=== PATIENT | female | born 1970 | race Caucasian/White ===

== ENCOUNTER 2016-12-11 07:36 | Outpatient (CLI) | payer MEDICARE | END 2016-12-11 07:37 | disposition home or self-care (01) | DX: E10.8 Type 1 diabetes mellitus with unspecified complications (principal) ==

== ENCOUNTER 2017-02-09 14:26 | Outpatient (CLI) | payer MEDICARE | END 2017-02-09 14:27 | disposition home or self-care (01) | DX: Z12.31 Encounter for screening mammogram for malignant neoplasm of breast (principal) ==

== ENCOUNTER 2017-02-28 08:30 | Outpatient (CLI) | payer MEDICARE | END 2017-02-28 08:31 | disposition home or self-care (01) | DX: E10.9 Type 1 diabetes mellitus without complications (principal) ==

== ENCOUNTER 2017-05-31 07:58 | Outpatient (CLI) | payer MEDICARE ==
[2017-05-31 13:39] LABS: HEMOGLOBIN A1C 0.83 g/dL
[2017-05-31 13:45] LABS: ALBUMIN/GLOBULIN RATIO 1.3 (1.0-2.2); BILIRUBIN,TOTAL 0.8 mg/dL (0.2-1.0); BUN - BLOOD UREA NITROGEN 16 mg/dL (6-20); CALCIUM 8.6 mg/dL (8.5-10.3); CARBON DIOXIDE - CO2 24 mmol/L (21-32); CHLORIDE 106 mmol/L (101-111); CREATININE 0.9 mg/dL (0.4-1.0); GFR - MDRD 67 (>89); GLUCOSE 86 mg/dL (70-100); POTASSIUM 3.9 mmol/L (3.5-5.0); SODIUM 137 mmol/L (135-145); TOTAL PROTEIN 6.8 g/dL (6.7-8.2)
[2017-05-31 14:12] LABS: CHOLESTEROL 166 mg/dL; HDL CHOLESTEROL 56 mg/dL; LDL/HDL RATIO 1.3 (<4.4); TRIGLYCERIDES 200 mg/dL; VLDL CHOLESTEROL 40 mg/dL
== END 2017-05-31 07:59 | disposition home or self-care (01) ==
LOC: LAB.WCP 07:58
PROVIDERS: ATTEND Physician Assistant Medical
DX: E10.9 Type 1 diabetes mellitus without complications (principal); E03.9 Hypothyroidism, unspecified
CPT/HCPCS: 36415; 80053; 80061; 83036; 84443

== ENCOUNTER 2017-08-30 08:00 | Outpatient (CLI) | payer MEDICARE ==
[2017-08-30 13:37] LABS: CALCIUM 9.1 mg/dL (8.5-10.3); CREATININE 0.9 mg/dL (0.4-1.0); POTASSIUM 4.4 mmol/L (3.5-5.0)
[2017-08-30 13:40] LABS: HEMOGLOBIN A1C 0.89 g/dL
== END 2017-08-30 08:01 | disposition home or self-care (01) ==
LOC: LAB.WCP 08:00
PROVIDERS: ATTEND Physician Assistant Medical
DX: E10.9 Type 1 diabetes mellitus without complications (principal)
CPT/HCPCS: 36415; 80048; 82043; 83036

== ENCOUNTER 2017-11-21 10:54 | Outpatient (CLI) | payer MEDICARE ==
[2017-11-21 18:50] LABS: BASOPHILS # (AUTO) 0.1 10^3/uL (0.0-0.1); BASOPHILS % (AUTO) 0.8 %; EOSINOPHILS # (AUTO) 0.1 10^3/uL (0.0-0.7); EOSINOPHILS % (AUTO) 1.4 %; LYMPHOCYTES # (AUTO) 2.2 10^3/uL (1.5-3.5); LYMPHOCYTES % (AUTO) 30.2 %; MEAN CORPUSCULAR HEMOGLOBIN 30.5 pg (27.0-31.0); MEAN CORPUSCULAR HGB CONC 33.4 g/dL (32.0-36.0); MEAN CORPUSCULAR VOLUME 91.1 fL (81.0-99.0); MEAN PLATELET VOLUME 9.6 fL (7.9-10.8); MONOCYTES # (AUTO) 0.5 10^3/uL (0.0-1.0); MONOCYTES % (AUTO) 6.7 %; NEUTROPHILS # (AUTO) 4.3 10^3/uL (1.5-6.6); NEUTROPHILS % (AUTO) 60.9 %; PLT - PLATELET COUNT 221 10^3/uL (130-450); RED BLOOD COUNT 4.61 10^6/uL (4.20-5.40); RED CELL DISTRIBUTION WIDTH 13.3 % (12.0-15.0); WHITE BLOOD COUNT 7.1 x10^3/uL (4.8-10.8)
[2017-11-21 19:12] LABS: ALBUMIN 3.9 g/dL (3.2-5.5); ALBUMIN/GLOBULIN RATIO 1.1 (1.0-2.2); BILIRUBIN,TOTAL 0.4 mg/dL (0.2-1.0); CALCIUM 9.2 mg/dL (8.5-10.3); CREATININE 0.9 mg/dL (0.4-1.0); TOTAL PROTEIN 7.4 g/dL (6.7-8.2)
== END 2017-11-21 10:55 | disposition home or self-care (01) ==
LOC: LAB.WCP 10:54
PROVIDERS: ATTEND Family Medicine
DX: L03.90 Cellulitis, unspecified (principal)
CPT/HCPCS: 36415; 80053; 85025

== ENCOUNTER 2017-11-23 11:02 | Emergency (ER) | payer MEDICARE ==
--- NOTE | 2017-11-23 12:01 | ED Physician Documentation ---
PD HPI SKIN - Stated complaint Stated Complaint: TENDERNESS IN LEG - Chief complaint Chief Complaint: Ext Problem - History obtained from History obtained from: Patient - History of Present Illness Timing - onset: How many weeks ago (2) Timing - duration: Weeks (2) Timing - details: Gradual onset, Still present (worsening - initially redness and tenderness dorsum of foot on right, not of toes. Continued with this despite abx from PCP. No noted injury. No skin sores. Rx as cellulitis with Keflex. Not improved and had increased redness and tenderness to foot and then lower leg. Given Rocephin IM in office 2 days in a row. Now with line of redness and tenderness up calf and medial thigh. Seen in office today and referred to ER for IV abx.) Location: RLE (fot and then to lower leg, and thigh) Quality / character: Painful, Discolored (red), Swelling (firm swelling in linear fashion) Improved by: No: Antibiotics Associated symptoms: No: Fever, Myalgias, N/V/D Contributing factors: No: Recent illness Similar symptoms before: Has not had sx before Recently seen: Clinic Review of Systems Constitutional: denies: Fever, Chills, Myalgias Throat: denies: Sore throat Cardiac: denies: Chest pain / pressure Respiratory: denies: Dyspnea, Cough GI: denies: Nausea, Vomiting Skin: reports: Rash, Lesions Neurologic: denies: Focal weakness, Numbness PD PAST MEDICAL HISTORY - Past Medical History Endocrine/Autoimmune: Type 1 diabetes, HyPOthyroidism HEENT: Macular degeneration Psych: Depression - Past Surgical History Past Surgical History: Yes 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 - Present Medications Home Medications: Ambulatory Orders Medication Instructions Recorded Confirmed Citalopram [CeleXA] 40 mg PO DAILY 06/15/14 02/28/16 Levothyroxine Sodium [Levoxyl] 88 mcg PO DAILY 06/15/14 02/28/16 Norethindrone-E.estradiol-Iron 1 tab PO DAILY 06/15/14 02/28/16 [Loestrin Fe 1.5-30 Tablet] Glucagon,Human Recombinant 1 mg IJ ONCE PRN MDD 1 02/28/16 02/28/16 [Glucagen] L.acidoph/L.rhamn/B.bif/B.long 12.9 mg PO DAILY 02/28/16 02/28/16 [Probiotic Acidophilus Biobeads] Aspirin 11/23/17 HYDROcod/ACETAM 5/325 [[place]asgow 5/325] 1 tab PO Q6H PRN #15 tablet 11/23/17 Insulin Aspart [NovoLOG] 11/23/17 Naproxen 375 mg PO BID #14 tablet 11/23/17 Rivaroxaban [Xarelto] 15 mg PO BID #42 tablet 11/23/17 - Allergies Allergies/Adverse Reactions: Allergies Allergy/AdvReac Type Severity Reaction Status Date / Time Sulfa (Sulfonamide AdvReac Intermediate Hives Verified 11/23/17 11:14 Antibiotics) amoxicillin [Amoxicillin] AdvReac Unknown Unknown Verified 11/23/17 11:14 Penicillins AdvReac Unknown Unknown Verified 11/23/17 11:14 - Social History Does the pt smoke?: No Smoking Status: Never smoker Does the pt drink ETOH?: Yes Does the pt have substance abuse?: No - Immunizations Immunizations are current?: Yes - POLST Patient has POLST: No PD ED PE NORMAL - Vitals Vital signs reviewed: Yes - General General: Alert and oriented X 3, No acute distress, Well developed/nourished - Cardiac Cardiac: RRR, No murmur - Respiratory Respiratory: Clear bilaterally - Abdomen Abdomen: Soft, Non tender - Derm Derm: Normal color, Warm and dry - Extremities Extremities: No edema, Other (dorsum of foot and medial ankle, then to posteromedial calf and up to popliteal area with linear redness, firmness in cord, and marked tenderness. No skin sores. Toes are normal. Good color and cap refill in toes. ) - Neuro Neuro: Alert and oriented X 3, No motor deficit, No sensory deficit Results - Vitals Vitals: Vital Signs - 24 hr 11/23/17 11/23/17 11:09 15:38 Temperature 36.8 C 36.6 C Heart Rate 78 80 Respiratory 15 17 Rate Blood Pressure 117/89 H 154/82 H O2 Saturation 96 100 Oxygen O2 Source Room air - Labs Labs: Laboratory Tests 11/23/17 11/23/17 11/23/17 11:25 11:25 11:25 WBC 7.4 RBC 4.69 Hgb 14.2 Hct 41.8 MCV 89.2 MCH 30.2 MCHC 33.8 RDW 13.2 Plt Count 213 MPV 9.3 Neut # 5.0 Lymph # 1.8 Mcintosh # 0.5 Eos # 0.1 Baso # 0.0 Absolute Nucleated RBC 0.00 Nucleated RBC % 0.1 ESR 2 Sodium 134 L Potassium 3.9 Chloride 98 L Carbon Dioxide 24 Anion Gap 12.0 BUN 19 Creatinine 0.9 Estimated GFR (MDRD) 67 L Glucose 215 H Calcium 9.4 Total Bilirubin 0.5 AST 19 ALT 13 Alkaline Phosphatase 37 L C-Reactive Protein 1.0 Total Protein 7.7 Albumin 4.2 Globulin 3.5 Albumin/Globulin Ratio 1.2 Lipase 43 - Rads (name of study) venous U/S Radiology: Prelim report reviewed, Discussed with rads (superficial phlebitis and then peroneal DVT. ) PD MEDICAL DECISION MAKING - ED course Complexity details: considered differential (exam more c/w phlebitis rather than cellulitis. Got U/S which showed DVT as well. Discussed options with patient and shared decision with Serjio. ), d/w patient, d/w PMD (Dr. Bunch , software applications architect. ) Departure - Departure Disposition: 01 Home, Self Care Clinical Impression: Deep vein thrombosis Qualifiers: DVT location: lower extremity Affected thrombotic vein of extremity: other lower extremity vein Chronicity: acute Laterality: right Qualified Code(s): I82.491 - Acute embolism and thrombosis of other specified deep vein of right lower extremity Superficial thrombophlebitis Qualifiers: Superficial thrombophlebitis-Involved body area: lower extremity Laterality: right Qualified Code(s): I80.01 - Phlebitis and thrombophlebitis of superficial vessels of right lower extremity Condition: Stable Record reviewed to determine appropriate education?: Yes Instructions: ED DVT, ED Phlebitis Superficial Follow-Up: Shikha Cedeno PA-C [Provider Admit Priv/Credential] - Prescriptions: HYDROcod/ACETAM 5/325 [Glasgow 5/325] 1 tab PO Q6H PRN #15 tablet PRN Reason: Pain Naproxen 375 mg PO BID #14 tablet Rivaroxaban [Xarelto] 15 mg PO BID #42 tablet Comments: Drink lots of fluids. Activity as tolerated. Start the Xarelto blood thinner twice daily for the first 3 weeks. That will need to switch to once daily after that. Follow-up with your primary care next week, call for an appointment. For the short-term you could add an anti-inflammatory to help with the phlebitis naproxen twice daily for 5-7 days. Warm towels to the area to help soften the clot. Add Tylenol or hydrocodone if needed for pain. You can discontinue prior antibiotics. Discharge Date/Time: 11/23/17 15:40
[2017-11-23] MEDS ORDERED: VANCOMYCIN INJ 1 GM in SODIUM CHLORIDE 0.9% 250 ML IV STA (12:22)
[2017-11-23] MEDS ORDERED: KETOROLAC 60 MG/2 ML VIAL IVP STA (12:22)
[2017-11-23] MEDS ORDERED: ceFAZolin 1 GM in SODIUM CHLORIDE 0.9% MINIBAG 100 ML IV ONE (12:22)
[2017-11-23] MEDS ORDERED: SODIUM CHLORIDE 0.9% 1,000 ML IV ONE (12:22)
[2017-11-23] MEDS ORDERED: MORPHINE 2 MG/ML CARPUJECT IVP STA (12:23)
[2017-11-23 12:37] LABS: BASOPHILS % (AUTO) 0.5 %; EOSINOPHILS # (AUTO) 0.1 10^3/uL (0.0-0.7); EOSINOPHILS % (AUTO) 1.2 %; HGB - HEMOGLOBIN 14.2 g/dL (12.0-16.0); LYMPHOCYTES # (AUTO) 1.8 10^3/uL (1.5-3.5); LYMPHOCYTES % (AUTO) 24.4 %; MEAN CORPUSCULAR HEMOGLOBIN 30.2 pg (27.0-31.0); MEAN CORPUSCULAR HGB CONC 33.8 g/dL (32.0-36.0); MEAN CORPUSCULAR VOLUME 89.2 fL (81.0-99.0); MEAN PLATELET VOLUME 9.3 fL (7.9-10.8); MONOCYTES # (AUTO) 0.5 10^3/uL (0.0-1.0); MONOCYTES % (AUTO) 6.6 %; NEUTROPHILS % (AUTO) 67.3 %; PLT - PLATELET COUNT 213 10^3/uL (130-450); RED BLOOD COUNT 4.69 10^6/uL (4.20-5.40); RED CELL DISTRIBUTION WIDTH 13.2 % (12.0-15.0); WHITE BLOOD COUNT 7.4 x10^3/uL (4.8-10.8)
[2017-11-23 12:49] LABS: ALBUMIN 4.2 g/dL (3.2-5.5); ALBUMIN/GLOBULIN RATIO 1.2 (1.0-2.2); BILIRUBIN,TOTAL 0.5 mg/dL (0.2-1.0); CALCIUM 9.4 mg/dL (8.5-10.3); CREATININE 0.9 mg/dL (0.4-1.0); TOTAL PROTEIN 7.7 g/dL (6.7-8.2)
[2017-11-23] MEDS ORDERED: RIVAROXABAN 15 MG TABLET PO STA (14:34)
[2017-11-23 15:39] VITALS: BP 154/82
--- NOTE | 2017-11-23 16:15 | Ultrasound Report ---
DATE OF SERVICE: 11/23/2017 RIGHT LEG VENOUS DUPLEX: 11/23/2017 CLINICAL INDICATION: Calf and foot pain and redness. TECHNIQUE: Real-time sonographic vascular imaging was performed by the account supervisor through the right lower extremity utilizing both color flow and Doppler spectral analysis. Multiple packaging sales representative static images were saved for review. FINDINGS: The right common femoral, greater saphenous, profunda femoris, superficial femoral, and popliteal veins are widely patent. There is thrombosis of one of the paired posterior tibial veins and one of the paired peroneal veins in the calf. Additionally, there is superficial thrombophlebitis of the lesser saphenous vein in the calf. IMPRESSION: CALF VEIN DVT AND SUPERFICIAL THROMBOPHLEBITIS OF THE LESSER SAPHENOUS VEIN. CRITICAL RESULT: Results called to Dr. Garcia in the emergency department on 11/23/2017 at 1350 hours. TD: 11/23/2017 16:15
== END 2017-11-23 15:40 | disposition home or self-care (01) ==
LOC: ED 11:02
DX: I82.491 Acute embolism and thrombosis of other specified deep vein of right lower extremity (principal); E11.9 Type 2 diabetes mellitus without complications; E03.9 Hypothyroidism, unspecified
CPT/HCPCS: 36415; 80053; 83690; 85025; 85651; 86140; 93971; 96365; 96366; 96368; 96375; 99283; 99284; A9270; J3370

== ENCOUNTER 2018-01-07 10:18 | Outpatient (CLI) | payer MEDICARE ==
[2018-01-07 13:07] LABS: CALCIUM 9.3 mg/dL (8.5-10.3); CREATININE 0.8 mg/dL (0.4-1.0)
[2018-01-07 13:21] LABS: HB2 TOTAL 13.8 g/dL; HEMOGLOBIN A1C 0.77 g/dL; HEMOGLOBIN A1C % 7.3 % (4.6-6.2)
== END 2018-01-07 10:19 | disposition home or self-care (01) ==
LOC: LAB.WCP 10:18
PROVIDERS: ATTEND Physician Assistant Medical
DX: E10.9 Type 1 diabetes mellitus without complications (principal)
CPT/HCPCS: 36415; 80048; 83036

== ENCOUNTER 2018-02-27 12:15 | Outpatient (CLI) | payer MEDICARE ==
--- NOTE | 2018-02-27 16:41 | Mammography Report ---
SCREENING MAMMOGRAM: 02/27/2018 CLINICAL INDICATION: A 47-year-old nulliparous patient with history of benign right breast biopsy, for screening. COMPARISON: 01/2017, 01/2016, 12/2014, 01/2013, 01/2012, 01/2011, 01/2010 FINDINGS: The breasts again demonstrate heterogeneously dense fibroglandular parenchyma bilaterally. Coarse and punctate, typically benign calcifications are present. Post-biopsy changes in the right breast are stable. No suspicious masses, clustered microcalcifications, or regions of architectural distortion are identified. IMPRESSION: BENIGN FINDINGS. RECOMMENDATION: Routine annual screening unless otherwise clinically indicated. BI-RADS CATEGORY 2 BENIGN FINDINGS. STANDARD QUALIFYING STATEMENTS: 1. This examination was reviewed with the aid of Computer-Aided Detection (CAD). 2. A negative or benign imaging report should not delay biopsy if clinically suspicious findings are present. Consider surgical consultation if warranted. More than 5% of cancers are not identified by imaging. 3. Dense breasts may obscure an underlying neoplasm. TD: 02/27/2018 16:39
== END 2018-02-27 12:16 | disposition home or self-care (01) ==
LOC: DI.N 12:15
PROVIDERS: ATTEND Physician Assistant Medical
DX: Z12.31 Encounter for screening mammogram for malignant neoplasm of breast (principal)
CPT/HCPCS: 77067

== ENCOUNTER 2018-04-09 08:32 | Outpatient (CLI) | payer MEDICARE ==
[2018-04-09 12:24] LABS: HB2 TOTAL 14.8 g/dL; HEMOGLOBIN A1C 0.87 g/dL; HEMOGLOBIN A1C % 7.5 % (4.6-6.2)
[2018-04-09 12:34] LABS: BUN - BLOOD UREA NITROGEN 17 mg/dL (6-20); CALCIUM 8.9 mg/dL (8.5-10.3); CARBON DIOXIDE - CO2 26 mmol/L (21-32); CHLORIDE 101 mmol/L (101-111); CHOL/HDL RATIO 2.9 (<4.4); CHOLESTEROL 184 mg/dL; CREATININE 0.8 mg/dL (0.4-1.0); GFR - MDRD 77 (>89); GLUCOSE 184 mg/dL (70-100); HDL CHOLESTEROL 63 mg/dL; LDL CHOLESTEROL,CALCULATED 106 mg/dL; LDL/HDL RATIO 1.7 (<4.4); SODIUM 132 mmol/L (135-145); VLDL CHOLESTEROL 15 mg/dL
== END 2018-04-09 08:33 | disposition home or self-care (01) ==
LOC: LAB.WCP 08:32
PROVIDERS: ATTEND Physician Assistant Medical
DX: E10.9 Type 1 diabetes mellitus without complications (principal)
CPT/HCPCS: 36415; 80048; 80061; 83036; 83721

== ENCOUNTER 2018-07-10 09:30 | Outpatient (CLI) | payer MEDICARE ==
[2018-07-10 13:40] LABS: CALCIUM 8.9 mg/dL (8.5-10.3); CREATININE 0.8 mg/dL (0.4-1.0)
[2018-07-10 13:56] LABS: HB2 TOTAL 14.4 g/dL; HEMOGLOBIN A1C 0.84 g/dL; HEMOGLOBIN A1C % 7.5 % (4.6-6.2)
== END 2018-07-10 09:31 | disposition home or self-care (01) ==
LOC: LAB.WCP 09:30
PROVIDERS: ATTEND Physician Assistant Medical
DX: E10.9 Type 1 diabetes mellitus without complications (principal)
CPT/HCPCS: 36415; 80048; 83036

== ENCOUNTER 2018-09-25 08:00 | Outpatient (CLI) | payer MEDICARE ==
[2018-09-25 13:41] LABS: BASOPHILS % (AUTO) 1.1 %; EOSINOPHILS # (AUTO) 0.1 10^3/uL (0.0-0.7); EOSINOPHILS % (AUTO) 2.6 %; LYMPHOCYTES # (AUTO) 1.6 10^3/uL (1.5-3.5); LYMPHOCYTES % (AUTO) 41.4 %; MEAN CORPUSCULAR HEMOGLOBIN 30.3 pg (27.0-31.0); MEAN CORPUSCULAR HGB CONC 33.8 g/dL (32.0-36.0); MEAN CORPUSCULAR VOLUME 89.5 fL (81.0-99.0); MEAN PLATELET VOLUME 9.3 fL (7.9-10.8); MONOCYTES # (AUTO) 0.3 10^3/uL (0.0-1.0); MONOCYTES % (AUTO) 8.5 %; NEUTROPHILS # (AUTO) 1.8 10^3/uL (1.5-6.6); NEUTROPHILS % (AUTO) 46.4 %; PLT - PLATELET COUNT 217 10^3/uL (130-450); RED BLOOD COUNT 4.61 10^6/uL (4.20-5.40); RED CELL DISTRIBUTION WIDTH 13.3 % (12.0-15.0); WHITE BLOOD COUNT 3.9 x10^3/uL (4.8-10.8)
[2018-09-25 13:58] LABS: HB2 TOTAL 14.8 g/dL; HEMOGLOBIN A1C 0.82 g/dL; HEMOGLOBIN A1C % 7.2 % (4.6-6.2)
[2018-09-25 14:08] LABS: ALBUMIN 4.3 g/dL (3.2-5.5); ALBUMIN/GLOBULIN RATIO 1.3 (1.0-2.2); ALKALINE PHOSPHATASE 40 IU/L (42-121); ALT ALANINE AMINOTRANSFERASE 15 IU/L (10-60); AST ASPARTATE AMINOTRANSFERASE 21 IU/L (10-42); BILIRUBIN,TOTAL 0.8 mg/dL (0.2-1.0); BUN - BLOOD UREA NITROGEN 17 mg/dL (6-20); CARBON DIOXIDE - CO2 29 mmol/L (21-32); CHLORIDE 102 mmol/L (101-111); CHOL/HDL RATIO 3.3 (<4.4); CHOLESTEROL 202 mg/dL; CREATININE 0.8 mg/dL (0.4-1.0); GFR - MDRD 76 (>89); GLUCOSE 123 mg/dL (70-100); HDL CHOLESTEROL 62 mg/dL; LDL CHOLESTEROL,CALCULATED 122 mg/dL; SODIUM 136 mmol/L (135-145); TOTAL PROTEIN 7.5 g/dL (6.7-8.2); VLDL CHOLESTEROL 18 mg/dL
== END 2018-09-25 23:59 | disposition home or self-care (01) ==
LOC: LAB.WCP 08:00
PROVIDERS: ATTEND Physician Assistant Medical
DX: E10.9 Type 1 diabetes mellitus without complications (principal)
CPT/HCPCS: 36415; 80053; 80061; 83036; 83721; 84443; 85025

== ENCOUNTER 2018-10-21 10:05 | Outpatient (CLI) | payer MEDICARE ==
--- NOTE | 2018-10-21 12:52 | XRAY Report ---
Reason: KNEE PAIN,LEFT Procedure Date: 10/21/2018 Accession Number: [id number] / [id number] Procedure: XR - Knee 3 View LT CPT Code: FULL RESULT: EXAM: LEFT KNEE RADIOGRAPHY EXAM DATE: 10/21/2018 10:21 AM. CLINICAL HISTORY: KNEE Pain, left. COMPARISON: None. TECHNIQUE: 3 views. FINDINGS: Bones: No fractures or bone lesions. Joints: There is mild lateral patellar tilt. No effusion. No subluxations. Soft Tissues: There is prepatellar soft tissue swelling. IMPRESSION: Soft tissue swelling. No acute bone findings. RADIA
== END 2018-10-21 10:06 | disposition home or self-care (01) ==
LOC: DI 10:05
PROVIDERS: ATTEND Physician Assistant Medical
DX: M25.562 Pain in left knee (principal); R22.42 Localized swelling, mass and lump, left lower limb

== ENCOUNTER 2018-12-23 08:34 | Outpatient (CLI) | payer MEDICARE ==
[2018-12-23 13:23] LABS: BUN - BLOOD UREA NITROGEN 26 mg/dL (6-20); CHOL/HDL RATIO 2.6 (<4.4); CHOLESTEROL 203 mg/dL; CREATININE 0.8 mg/dL (0.4-1.0); GFR - MDRD 76 (>89); GLUCOSE 266 mg/dL (70-100); HDL CHOLESTEROL 77 mg/dL; LDL CHOLESTEROL,CALCULATED 108 mg/dL; LDL/HDL RATIO 1.4 (<4.4); VLDL CHOLESTEROL 18 mg/dL
[2018-12-23 13:30] LABS: CALCIUM 9.3 mg/dL (8.5-10.3); CARBON DIOXIDE - CO2 27 mmol/L (21-32); CHLORIDE 101 mmol/L (101-111); SODIUM 135 mmol/L (135-145)
[2018-12-23 14:21] LABS: HB2 TOTAL 15.6 g/dL
== END 2018-12-23 23:59 | disposition home or self-care (01) ==
LOC: LAB.WCP 08:34
PROVIDERS: ATTEND Physician Assistant Medical
DX: E10.9 Type 1 diabetes mellitus without complications (principal)
CPT/HCPCS: 36415; 80048; 80061; 83036; 83721

== ENCOUNTER 2019-03-24 09:17 | Outpatient (CLI) | payer MEDICARE ==
[2019-03-24 12:46] LABS: CALCIUM 9.1 mg/dL (8.5-10.3)
[2019-03-24 12:56] LABS: HB2 TOTAL 14.5 g/dL; HEMOGLOBIN A1C 0.9 g/dL; HEMOGLOBIN A1C % 7.8 % (4.6-6.2)
== END 2019-03-24 09:18 | disposition home or self-care (01) ==
LOC: LAB.WCP 09:17
PROVIDERS: ATTEND Physician Assistant Medical
DX: E10.9 Type 1 diabetes mellitus without complications (principal)
CPT/HCPCS: 36415; 80048; 83036

== ENCOUNTER 2019-03-26 08:34 | Outpatient (CLI) | payer MEDICARE ==
--- NOTE | 2019-03-27 08:42 | Mammography Report ---
Reason: SCREENING MAMMO Procedure Date: 03/26/2019 Accession Number: [id number] / [id number] Procedure: MGN - Screening Mammo Dig Bilat CPT Code: FULL RESULT: EXAM: Screening Mammo Dig Bilat DATE: 03/26/2019 9:07 AM CLINICAL HISTORY: Screening encounter. History of nulliparity. History of benign right breast biopsy. TECHNIQUE: (B) - Bilateral CC, laterally exaggerated CC, MLO views were obtained. COMPARISON: 02/27/2018 through 01/15/2015. PARENCHYMAL PATTERN: (D) - The breast(s) demonstrate(s) heterogeneously dense fibroglandular parenchyma. FINDINGS: Postbiopsy changes are seen in the right breast. There are coarse typically benign calcifications. There are no suspicious masses, calcifications, or areas of distortion. IMPRESSION: Benign findings. BI-RADS category 2. RECOMMENDATION: (ANNUAL) - Recommend routine annual screening mammography. BI-RADS CATEGORY: (2) - Benign Findings. STANDARD QUALIFYING STATEMENTS: 1. This examination was not reviewed with the aid of Computer-Aided Detection (CAD). 2. A negative or benign imaging report should not preclude biopsy if clinically suspicious findings are present. 3. Dense breasts may obscure an underlying neoplasm. 4. This examination was reviewed without the aid of 3D breast imaging (tomosynthesis).
== END 2019-03-26 08:35 | disposition home or self-care (01) ==
LOC: DI.N 08:34
DX: Z12.31 Encounter for screening mammogram for malignant neoplasm of breast (principal)
CPT/HCPCS: 77067

== ENCOUNTER 2019-07-02 10:14 | Outpatient (CLI) | payer MEDICARE ==
[2019-07-02 12:40] LABS: CALCIUM 8.9 mg/dL (8.5-10.3); CREATININE 0.7 mg/dL (0.4-1.0)
[2019-07-02 13:06] LABS: HB2 TOTAL 13.8 g/dL; HEMOGLOBIN A1C 0.85 g/dL; HEMOGLOBIN A1C % 7.8 % (4.6-6.2)
== END 2019-07-02 23:59 | disposition home or self-care (01) ==
LOC: LAB.WCP 10:14
PROVIDERS: ATTEND Physician Assistant Medical
DX: E10.49 Type 1 diabetes mellitus with other diabetic neurological complication (principal)
CPT/HCPCS: 36415; 80048; 83036

== ENCOUNTER 2019-09-17 06:06 | Day surgery (SDC) | payer MEDICARE ==
[2019-09-17] MEDS ORDERED: LACTATED RINGERS 1,000 ML IV ONE (06:57)
[2019-09-17 08:49] VITALS: BP 105/66
== END 2019-09-17 06:07 | disposition home or self-care (01) ==
LOC: SDS 06:06
PROVIDERS: ATTEND Surgery
PROC: 0DBM8ZZ Excision of Descending Colon, Via Natural or Artificial Opening Endoscopic (ICD-10-PCS; 2019-09-17)
PROC: 0DBH8ZZ Excision of Cecum, Via Natural or Artificial Opening Endoscopic (ICD-10-PCS; principal; 2019-09-17 07:30)
DX: Z12.11 Encounter for screening for malignant neoplasm of colon (principal); D12.0 Benign neoplasm of cecum; D12.4 Benign neoplasm of descending colon; K64.8 Other hemorrhoids; E10.9 Type 1 diabetes mellitus without complications; Z79.4 Long term (current) use of insulin; E03.9 Hypothyroidism, unspecified
CPT/HCPCS: 45380; J7120

== ENCOUNTER 2019-10-01 08:00 | Outpatient (CLI) | payer MEDICARE ==
[2019-10-01 13:03] LABS: ALBUMIN 4.2 g/dL (3.2-5.5); ALBUMIN/GLOBULIN RATIO 1.3 (1.0-2.2); ALKALINE PHOSPHATASE 43 IU/L (42-121); ALT ALANINE AMINOTRANSFERASE 16 IU/L (10-60); AST ASPARTATE AMINOTRANSFERASE 20 IU/L (10-42); BASOPHILS % (AUTO) 0.8 %; BILIRUBIN,TOTAL 0.6 mg/dL (0.2-1.0); BUN - BLOOD UREA NITROGEN 19 mg/dL (6-20); CALCIUM 9.4 mg/dL (8.5-10.3); CARBON DIOXIDE - CO2 31 mmol/L (21-32); CHLORIDE 100 mmol/L (101-111); CHOL/HDL RATIO 2.7 (<4.4); CHOLESTEROL 183 mg/dL; CREATININE 0.9 mg/dL (0.4-1.0); CREATININE,URINE 233.6 mg/dL; EOSINOPHILS # (AUTO) 0.1 10^3/uL (0.0-0.7); EOSINOPHILS % (AUTO) 2.9 %; GFR - MDRD 66 (>89); GLUCOSE 144 mg/dL (70-100); HDL CHOLESTEROL 69 mg/dL; HGB - HEMOGLOBIN 13.5 g/dL (12.0-16.0); LDL CHOLESTEROL,CALCULATED 101 mg/dL; LDL/HDL RATIO 1.5 (<4.4); LYMPHOCYTES % (AUTO) 40.8 %; MEAN CORPUSCULAR HGB CONC 32.3 g/dL (32.0-36.0); MEAN CORPUSCULAR VOLUME 89.9 fL (81.0-99.0); MEAN PLATELET VOLUME 10.9 fL (7.9-10.8); MICROALBUM/CREATININE RATIO,UR 4.3 ug/mg (<30.0); MONOCYTES # (AUTO) 0.4 10^3/uL (0.0-1.0); MONOCYTES % (AUTO) 8.6 %; NEUTROPHILS # (AUTO) 2.3 10^3/uL (1.5-6.6); NEUTROPHILS % (AUTO) 46.7 %; PLT - PLATELET COUNT 246 10^3/uL (130-450); RED BLOOD COUNT 4.65 10^6/uL (4.20-5.40); RED CELL DISTRIBUTION WIDTH 13.7 % (12.0-15.0); SODIUM 139 mmol/L (135-145); TOTAL PROTEIN 7.4 g/dL (6.7-8.2); VLDL CHOLESTEROL 13 mg/dL; WHITE BLOOD COUNT 4.9 x10^3/uL (4.8-10.8)
[2019-10-01 13:24] LABS: HB2 TOTAL 13.7 g/dL; HEMOGLOBIN A1C 0.96 g/dL; HEMOGLOBIN A1C % 8.6 % (4.6-6.2)
== END 2019-10-01 23:59 | disposition home or self-care (01) ==
LOC: LAB.WCP 08:00
PROVIDERS: ATTEND Family Medicine
DX: Z00.00 Encounter for general adult medical examination without abnormal findings (principal); E10.49 Type 1 diabetes mellitus with other diabetic neurological complication
CPT/HCPCS: 36415; 80053; 80061; 82043; 82570; 83036; 83721; 84443; 85025

== ENCOUNTER 2020-01-07 08:00 | Outpatient (CLI) | payer MEDICARE, OTHER ==
[2020-01-07 12:36] LABS: BUN - BLOOD UREA NITROGEN 14 mg/dL (6-20); CALCIUM 9.5 mg/dL (8.5-10.3); CARBON DIOXIDE - CO2 29 mmol/L (21-32); CHLORIDE 99 mmol/L (101-111); CHOL/HDL RATIO 2.1 (<4.4); CHOLESTEROL 142 mg/dL; CREATININE 0.8 mg/dL (0.4-1.0); GLUCOSE 191 mg/dL (70-100); HDL CHOLESTEROL 67 mg/dL; LDL CHOLESTEROL,CALCULATED 59 mg/dL; LDL/HDL RATIO 0.9 (<4.4); SODIUM 137 mmol/L (135-145); VLDL CHOLESTEROL 16 mg/dL
[2020-01-07 12:47] LABS: HB2 TOTAL 13.4 g/dL; HEMOGLOBIN A1C 0.79 g/dL; HEMOGLOBIN A1C % 7.5 % (4.6-6.2)
== END 2020-01-07 23:59 | disposition home or self-care (01) ==
LOC: LAB.WCP 08:00
PROVIDERS: ATTEND Physician Assistant Medical
DX: E10.49 Type 1 diabetes mellitus with other diabetic neurological complication (principal)
CPT/HCPCS: 36415; 80048; 80061; 83036; 83721

== ENCOUNTER 2020-03-23 23:45 | Emergency (ER) | payer OTHER ==
--- NOTE | 2020-03-23 23:47 | ED Physician Documentation ---
History of Present Illness - Stated complaint Stated Complaint: FEM - History obtained from History obtained from: Patient (Patient is a 49-year-old female who presents with suprapubic discomfort and cramping and spasms without vaginal bleeding or vaginal discharge she does report some flank pain that is coming gone on both sides but denies hematuria she does report nausea but no vomiting she denies diarrhea or constipation.) Review of Systems Constitutional: reports: Reviewed and negative Eyes: reports: Reviewed and negative Ears: reports: Reviewed and negative Nose: reports: Reviewed and negative Throat: reports: Reviewed and negative Cardiac: reports: Reviewed and negative Respiratory: reports: Reviewed and negative GI: reports: Reviewed and negative : reports: Other (Flank pain and suprapubic discomfort.) Skin: reports: Reviewed and negative Musculoskeletal: reports: Reviewed and negative Neurologic: reports: Reviewed and negative Psychiatric: reports: Reviewed and negative Endocrine: reports: Reviewed and negative Immunocompromised: reports: Reviewed and negative PD PAST MEDICAL HISTORY - Past Medical History Cardiovascular: Other Respiratory: Pneumonia Endocrine/Autoimmune: Type 1 diabetes, HyPOthyroidism GI: None : None HEENT: Other Psych: Depression Musculoskeletal: Osteoarthritis Derm: None - Past Surgical History Past Surgical History: Yes Ortho: Carpal Tunnel surgery, 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:  - Present Medications Home Medications: Ambulatory Orders Medication Instructions Recorded Confirmed Citalopram [CeleXA] 40 mg PO DAILY 06/15/14 09/16/19 Levothyroxine Sodium [Levoxyl] 88 mcg PO DAILY 06/15/14 09/16/19 Glucagon,Human Recombinant 1 mg IJ ONCE PRN MDD 1 02/28/16 07/24/18 [Glucagen] Insulin Aspart [NovoLOG] 36 units SUBQ DAILY 11/23/17 09/16/19 Multivitamin [Multiple Vitamins] 1 each PO DAILY 07/24/18 09/16/19 Atorvastatin [Lipitor] 10 mg PO DAILY 03/23/20 03/23/20 Doxylamine Succinate [Unisom] 25 mg PO PRN PRN 03/23/20 03/23/20 Hydrocodone/Acetaminophen [Mulberry 1 each PO Q6HR PRN #7 tablet 03/24/20 5-325 Tablet] Nitrofurantoin Monohyd/M-Cryst 100 mg PO BID #10 capsule 03/24/20 [Macrobid 100 mg Capsule] Ondansetron Odt [Zofran Odt] 4 mg TL Q6H PRN #10 tablet 03/24/20 Phenazopyridine HCl [Pyridium] 100 mg PO TID PRN #5 tablet 03/24/20 - Allergies Allergies/Adverse Reactions: Allergies Allergy/AdvReac Type Severity Reaction Status Date / Time Sulfa (Sulfonamide AdvReac Intermediate Hives Verified 03/23/20 23:48 Antibiotics) amoxicillin [Amoxicillin] AdvReac Unknown Unknown Verified 03/23/20 23:48 Penicillins AdvReac Unknown Unknown Verified 03/23/20 23:48 acetaminophen [From Percocet] AdvReac Itching Verified 03/23/20 23:48 oxycodone AdvReac Itching Verified 03/23/20 23:48 - Social History Does the pt smoke?: No Smoking Status: Never smoker Does the pt drink ETOH?: Yes Does the pt have substance abuse?: No - Immunizations Immunizations are current?: Yes - POLST Patient has POLST: No PD ED PE NORMAL - Vitals Vital signs reviewed: Yes - General General: Alert and oriented X 3, No acute distress, Well developed/nourished - HEENT HEENT: PERRL, Moist mucous membranes - Neck Neck: Supple, no meningeal sign - Cardiac Cardiac: RRR, No murmur, Strong equal pulses - Respiratory Respiratory: Clear bilaterally - Abdomen Abdomen: Normal bowel sounds, Soft, Non tender, Non distended, No organomegaly, Other (Tenderness palpation over the suprapubic region) - Female Female : Pt declined - Rectal Rectal: Pt declined - Back Back: No spinal TTP, Other (Bilateral CVA tenderness to palpation) - Derm Derm: Warm and dry - Extremities Extremities: No deformity, No tenderness to palpate, Normal ROM s pain, No edema, No calf tenderness / cord - Neuro Neuro: Alert and oriented X 3, concrete pump operator helper 2-12 intact, No motor deficit, No sensory deficit, Normal speech - Psych Psych: Normal mood, Normal affect Results - Vitals Vitals: Vital Signs - 24 hr 03/23/20 03/24/20 23:48 02:17 Temperature 36.5 C 36.7 C Heart Rate 76 79 Respiratory 16 17 Rate Blood Pressure 113/73 104/85 H O2 Saturation 98 97 Oxygen O2 Source Room air - Labs Labs: Laboratory Tests 03/23/20 03/23/20 03/24/20 23:56 23:56 00:55 WBC 4.7 L RBC 4.55 Hgb 13.1 Hct 39.9 MCV 87.7 MCH 28.8 MCHC 32.8 RDW 12.8 Plt Count 210 MPV 10.7 Neut # (Auto) 2.0 Lymph # (Auto) 2.1 Kimble # (Auto) 0.5 Eos # (Auto) 0.1 Baso # (Auto) 0.0 Absolute Nucleated RBC 0.00 Nucleated RBC % 0.0 PT INR APTT Sodium Potassium Chloride Carbon Dioxide Anion Gap BUN Creatinine Estimated GFR (MDRD) Glucose Calcium Total Bilirubin AST ALT Alkaline Phosphatase Total Protein Albumin Globulin Albumin/Globulin Ratio Lipase Urine Color YELLOW Urine Clarity CLEAR Urine pH 6.5 Ur Specific [place] <=1.005 <1.005 Urine Protein NEGATIVE Urine Glucose (UA) NEGATIVE Urine Ketones NEGATIVE Urine Occult Blood LARGE H Urine Nitrite NEGATIVE Urine Bilirubin NEGATIVE Urine Urobilinogen 0.2 (NORMAL) Ur Leukocyte Esterase NEGATIVE Urine RBC 11-25 H Urine WBC 0-3 Ur Squamous Epith Cells FEW Squamous Urine Bacteria Rare Ur Microscopic Review INDICATED Urine Culture Comments NOT INDICATED Urine HCG, Qual NEGATIVE 03/24/20 03/24/20 00:55 00:55 WBC RBC Hgb Hct MCV MCH MCHC RDW Plt Count MPV Neut # (Auto) Lymph # (Auto) Kimble # (Auto) Eos # (Auto) Baso # (Auto) Absolute Nucleated RBC Nucleated RBC % PT 11.9 INR 1.0 APTT 28.6 Sodium 136 Potassium 3.6 Chloride 99 L Carbon Dioxide 26 Anion Gap 11.0 BUN 16 Creatinine 0.8 Estimated GFR (MDRD) 76 L Glucose 151 H Calcium 9.3 Total Bilirubin 0.6 AST 23 ALT 17 Alkaline Phosphatase 51 Total Protein 7.1 Albumin 4.1 Globulin 3.0 Albumin/Globulin Ratio 1.4 Lipase 40 Urine Color Urine Clarity Urine pH Ur Specific [place] Urine Protein Urine Glucose (UA) Urine Ketones Urine Occult Blood Urine Nitrite Urine Bilirubin Urine Urobilinogen Ur Leukocyte Esterase Urine RBC Urine WBC Ur Squamous Epith Cells Urine Bacteria Ur Microscopic Review Urine Culture Comments Urine HCG, Qual PD MEDICAL DECISION MAKING - ED course Complexity details: reviewed results, re-evaluated patient, considered differential (Nephrolithiasis, acute cystitis), d/w patient (CT scan does show bilateral nonobstructing nephrolithiasis she does have with the presence of red blood cells in her urine this could represent a recently passed kidney stone or acute cystitis her leukocyte esterase and nitrite are both negative however given the inflammation and spasms that she appears to be having under bladder we will cover her for infection as well as provide a prescription for Pyridium and analgesics as well as antiemetics she will follow-up with her primary care provider tomorrow.) Departure - Departure Disposition: 01 Home, Self Care Clinical Impression: Kidney stones, Cystitis Condition: Stable Instructions: Kidney Stones, ED UTI Cystitis Female Follow-Up: Shikha Cedeno PA-C [Primary Care Provider] - 03/24/20 Prescriptions: Hydrocodone/Acetaminophen [Mulberry 5-325 Tablet] 1 each PO Q6HR PRN #7 tablet PRN Reason: Pain Nitrofurantoin Monohyd/M-Cryst [Macrobid 100 mg Capsule] 100 mg PO BID #10 capsule Ondansetron Odt [Zofran Odt] 4 mg TL Q6H PRN #10 tablet PRN Reason: Nausea / Vomiting Phenazopyridine HCl [Pyridium] 100 mg PO TID PRN #5 tablet PRN Reason: bladder spasms Comments: call your primary care provider today to schedule a follow up. take medications as directed and as needed. hydrate well. Discharge Date/Time: 03/24/20 02:25
[2020-03-24] LABS: BILIRUBIN,URINE NEGATIVE (NEGATIVE); GLUCOSE, URINE (UA) NEGATIVE (NEGATIVE); KETONES,URINE (UA) NEGATIVE (NEGATIVE); LEUKOCYTE ESTERASE, URINE NEGATIVE (NEGATIVE); NITRITE,URINE NEGATIVE (NEGATIVE); OCCULT BLOOD,URINE LARGE (NEGATIVE); PH,URINE 6.5 PH (5.0-7.5); PROTEIN,URINE NEGATIVE (NEGATIVE); UROBILINOGEN,URINE 0.2 (NORMAL) E.U./dL (NORMAL)
[2020-03-24 00:01] LABS: CLARITY,URINE CLEAR (CLEAR)
[2020-03-24 00:06] LABS: BACTERIA,URINE Rare /HPF (None Seen); HCG UR QUAL NEGATIVE; SQUAMOUS EPITHELIAL CELL,UR FEW Squamous (<= Few)
[2020-03-24] MEDS ORDERED: SODIUM CHLORIDE 0.9% 1,000 ML IV STA (00:32)
[2020-03-24] MEDS ORDERED: ONDANSETRON 4 MG/2 ML VIAL IVP STA (00:32)
[2020-03-24] MEDS ORDERED: fentaNYL 100 MCG/2 ML VIAL IVP STA (00:32)
[2020-03-24] MEDS ORDERED: PHENAZOPYRIDINE 100 MG TABLET PO STA (00:34)
[2020-03-24 01:01] LABS: BASOPHILS % (AUTO) 0.6 %; EOSINOPHILS # (AUTO) 0.1 10^3/uL (0.0-0.7); EOSINOPHILS % (AUTO) 2.1 %; HGB - HEMOGLOBIN 13.1 g/dL (12.0-16.0); LYMPHOCYTES # (AUTO) 2.1 10^3/uL (1.5-3.5); LYMPHOCYTES % (AUTO) 44.2 %; MEAN CORPUSCULAR HEMOGLOBIN 28.8 pg (27.0-31.0); MEAN CORPUSCULAR HGB CONC 32.8 g/dL (32.0-36.0); MEAN CORPUSCULAR VOLUME 87.7 fL (81.0-99.0); MEAN PLATELET VOLUME 10.7 fL (7.9-10.8); MONOCYTES # (AUTO) 0.5 10^3/uL (0.0-1.0); MONOCYTES % (AUTO) 11.1 %; NEUTROPHILS % (AUTO) 41.8 %; PLT - PLATELET COUNT 210 10^3/uL (130-450); RED BLOOD COUNT 4.55 10^6/uL (4.20-5.40); RED CELL DISTRIBUTION WIDTH 12.8 % (12.0-15.0); WHITE BLOOD COUNT 4.7 x10^3/uL (4.8-10.8)
[2020-03-24 01:06] LABS: PT - PROTHROMBIN TIME 11.9 secs (9.9-12.6)
[2020-03-24 01:13] LABS: ALBUMIN 4.1 g/dL (3.2-5.5); ALBUMIN/GLOBULIN RATIO 1.4 (1.0-2.2); BILIRUBIN,TOTAL 0.6 mg/dL (0.2-1.0); CALCIUM 9.3 mg/dL (8.5-10.3); CREATININE 0.8 mg/dL (0.4-1.0); TOTAL PROTEIN 7.1 g/dL (6.7-8.2)
[2020-03-24 01:14] LABS: PARTIAL THROMBOPLASTIN TIME 28.6 secs (24.9-33.3)
[2020-03-24 02:18] VITALS: BP 104/85
--- NOTE | 2020-03-24 08:22 | CT Report ---
Reason: abd pain with hematuria Procedure Date: 03/24/2020 Accession Number: [id number] / [id number] Procedure: CT - Abdomen/Pelvis WO CPT Code: Final Report FULL RESULT: PROCEDURE: Abdomen/Pelvis WO INDICATIONS: abd pain with hematuria TECHNIQUE: Noncontrast 5 mm thick sections acquired from the diaphragms to the symphysis. 5 mm coronal and sagittal reformats were then performed. For radiation dose reduction, the following was used: automated exposure control, adjustment of mA and/or kV according to patient size. COMPARISON: None. FINDINGS: Image quality: Excellent. ABDOMEN: Lung bases: Lung bases are clear. Heart size is normal. Solid organs: Liver and spleen are normal in size. Gallbladder is unremarkable. Pancreas is normal in contours. No adrenal nodules. Kidneys are normal in size, without hydronephrosis. There are 3 nonobstructing right renal stones, the largest of which is in the upper pole, measuring 3 mm. There are at least 2 left renal stones, the largest of which measures 2 mm. Peritoneum and bowel: Unenhanced bowel loops demonstrate normal wall thickness and caliber. No free fluid or air. Nodes and vessels: No retroperitoneal or mesenteric adenopathy by size criteria. Aorta and inferior vena cava are normal in caliber. Focal aortic atherosclerotic calcification. Miscellaneous: No ventral hernias. PELVIS: Genitourinary: Bladder is decompressed Miscellaneous: No inguinal hernias or adenopathy. Bones: No suspicious bony lesions. No vertebral body compression fractures. IMPRESSION: 1. Multiple bilateral small nonobstructing renal stones. 2. Note is made of focal atherosclerotic aortic calcification. A preliminary report with the above findings was provided at the time of the study by [facility]. Reviewed by: Kevin Car MD on 03/24/2020 8:21 AM PDT Approved by: Kevin Car MD on 03/24/2020 8:21 AM PDT Station ID: [id number]
== END 2020-03-24 02:25 | disposition home or self-care (01) ==
LOC: ED 23:45
DX: N30.90 Cystitis, unspecified without hematuria (principal); N20.0 Calculus of kidney; E10.9 Type 1 diabetes mellitus without complications; Z79.4 Long term (current) use of insulin
CPT/HCPCS: 74176; 80053; 81001; 81025; 83690; 85025; 85610; 85730; 96361; 96374; 96375; 99283; 99284; A9270; 36415; 81003; 87086

== ENCOUNTER 2020-04-27 09:47 | Outpatient (CLI) | payer OTHER ==
[2020-04-27 13:56] LABS: FREE T4 (FREE THYROXINE) 1.26 ng/dL (0.58-1.64)
== END 2020-04-27 23:59 | disposition home or self-care (01) ==
LOC: LAB.WCP 09:47
PROVIDERS: ATTEND Physician Assistant Medical
DX: E03.9 Hypothyroidism, unspecified (principal)
CPT/HCPCS: 36415; 84439; 84443

== ENCOUNTER 2020-06-15 14:23 | Outpatient (CLI) | payer OTHER ==
--- NOTE | 2020-06-16 12:38 | Mammography Report ---
BILATERAL DIGITAL SCREENING MAMMOGRAM 3D/2D: 06/15/2020 CLINICAL: Routine screening. Comparison is made to exams dated: 03/26/2019 mammogram, 02/27/2018 mammogram, 02/09/2017 mammogram, and 02/07/2016 mammogram - [facility]. The tissue of both breasts is heterogeneously de nse. This may lower the sensitivity of mammography. No significant masses, calcifications, or other findings are seen in either breast. There has been no significant interval change. IMPRESSION: NEGATIVE There is no mammographic evidence of malignancy. A 1 year screening mammogram is recommended. This exam was interpreted at Station ID: [id number]. NOTE: For mammograms, a report in lay terms will be sent to the patient. Approximately 15% of breast malignancies will not be visualized mammographically. In the management of a palpable breast mass, a negative mammogram must not discourage biopsy of a clinically suspicious lesion. Electronically Signed By: Gerardo Rashid M.D. ar/penrad:06/15/2020 15:40:48 ACR BI-RADS Category 1: Negative [id number] PARENCHYMAL PATTERN: (D) - The breast(s) demonstrate(s) heterogeneously dense fibroglandular liz solitario. BI-RADS CATEGORY: (1) - 1 RECOMMENDATION: (ANNUAL) - Recommend routine annual screening mammography. [id number] 1 year screening LATERALITY: (B)
== END 2020-06-15 14:24 | disposition home or self-care (01) ==
LOC: DI 14:23
DX: Z12.31 Encounter for screening mammogram for malignant neoplasm of breast (principal)
CPT/HCPCS: 77063; 77067

== ENCOUNTER 2020-07-05 08:00 | Outpatient (CLI) | payer OTHER ==
[2020-07-05 11:45] LABS: CREATININE 0.9 mg/dL (0.4-1.0)
[2020-07-05 12:24] LABS: HEMOGLOBIN A1c% 7.6 % (4.27-6.07)
[2020-07-05 12:39] LABS: FREE T4 (FREE THYROXINE) 1.42 ng/dL (0.58-1.64)
== END 2020-07-05 23:59 ==
LOC: LAB.WCP 08:00
PROVIDERS: ATTEND Physician Assistant Medical
DX: E10.49 Type 1 diabetes mellitus with other diabetic neurological complication (principal); E03.9 Hypothyroidism, unspecified
CPT/HCPCS: 36415; 80048; 83036; 84439; 84443

== ENCOUNTER 2020-10-11 08:00 | Outpatient (CLI) | payer OTHER ==
[2020-10-11 12:32] LABS: ALBUMIN 4.3 g/dL (3.2-5.5); ALBUMIN/GLOBULIN RATIO 1.5 (1.0-2.2); ALKALINE PHOSPHATASE 55 IU/L (42-121); ALT ALANINE AMINOTRANSFERASE 15 IU/L (10-60); AST ASPARTATE AMINOTRANSFERASE 20 IU/L (10-42); BILIRUBIN,TOTAL 0.8 mg/dL (0.2-1.0); BUN - BLOOD UREA NITROGEN 20 mg/dL (6-20); CALCIUM 9.3 mg/dL (8.5-10.3); CARBON DIOXIDE - CO2 28 mmol/L (21-32); CHLORIDE 99 mmol/L (101-111); CHOL/HDL RATIO 2.5 (<4.4); CHOLESTEROL 136 mg/dL; CREATININE 0.8 mg/dL (0.4-1.0); GLUCOSE 202 mg/dL (70-100); HDL CHOLESTEROL 54 mg/dL; LDL CHOLESTEROL,CALCULATED 62 mg/dL; LDL/HDL RATIO 1.1 (<4.4); SODIUM 135 mmol/L (135-145); TOTAL PROTEIN 7.1 g/dL (6.7-8.2); VLDL CHOLESTEROL 20 mg/dL
[2020-10-11 13:48] LABS: FREE T4 (FREE THYROXINE) 1.47 ng/dL (0.58-1.64)
[2020-10-11 14:14] LABS: HEMOGLOBIN A1c% 7.2 % (4.27-6.07)
== END 2020-10-11 23:59 | disposition home or self-care (01) ==
LOC: LAB.WCP 08:00
PROVIDERS: ATTEND Physician Assistant Medical
DX: E10.9 Type 1 diabetes mellitus without complications (principal); E03.9 Hypothyroidism, unspecified
CPT/HCPCS: 36415; 80053; 80061; 83036; 83721; 84439; 84443

== ENCOUNTER 2021-01-10 08:00 | Outpatient (CLI) | payer OTHER ==
[2021-01-10 17:54] LABS: BASOPHILS # (AUTO) 0.1 10^3/uL (0.0-0.1); BASOPHILS % (AUTO) 1.1 %; EOSINOPHILS # (AUTO) 0.1 10^3/uL (0.0-0.7); EOSINOPHILS % (AUTO) 2.2 %; HCT - HEMATOCRIT 43.5 % (37.0-47.0); HGB - HEMOGLOBIN 14.1 g/dL (12.0-16.0); LYMPHOCYTES # (AUTO) 1.7 10^3/uL (1.5-3.5); LYMPHOCYTES % (AUTO) 37.9 %; MEAN CORPUSCULAR HEMOGLOBIN 28.7 pg (27.0-31.0); MEAN CORPUSCULAR HGB CONC 32.4 g/dL (32.0-36.0); MEAN CORPUSCULAR VOLUME 88.6 fL (81.0-99.0); MEAN PLATELET VOLUME 10.8 fL (7.9-10.8); MONOCYTES # (AUTO) 0.3 10^3/uL (0.0-1.0); MONOCYTES % (AUTO) 6.8 %; NEUTROPHILS # (AUTO) 2.4 10^3/uL (1.5-6.6); NEUTROPHILS % (AUTO) 51.8 %; PLT - PLATELET COUNT 202 10^3/uL (130-450); RED BLOOD COUNT 4.91 10^6/uL (4.20-5.40); RED CELL DISTRIBUTION WIDTH 13.7 % (12.0-15.0); WHITE BLOOD COUNT 4.6 x10^3/uL (4.8-10.8)
[2021-01-10 18:02] LABS: ALBUMIN 4.7 g/dL (3.2-5.5); ALBUMIN/GLOBULIN RATIO 1.5 (1.0-2.2); BILIRUBIN,TOTAL 0.9 mg/dL (0.2-1.0); CALCIUM 9.8 mg/dL (8.5-10.3); POTASSIUM 4.5 mmol/L (3.5-5.0); TOTAL PROTEIN 7.8 g/dL (6.7-8.2)
[2021-01-10 18:17] LABS: THYROID STIMULATING HORMONE 0.54 uIU/mL (0.34-5.60)
[2021-01-10 19:47] LABS: ESTIMATED AVERAGE GLUCOSE 189 mg/dL (70-100); HEMOGLOBIN A1c% 8.2 % (4.27-6.07)
== END 2021-01-10 23:59 | disposition home or self-care (01) ==
LOC: LAB.WCP 08:00
PROVIDERS: ATTEND Physician Assistant Medical
DX: Z00.00 Encounter for general adult medical examination without abnormal findings (principal); E10.49 Type 1 diabetes mellitus with other diabetic neurological complication; E03.9 Hypothyroidism, unspecified
CPT/HCPCS: 36415; 80053; 83036; 84443; 85025

== ENCOUNTER 2021-04-07 08:00 | Outpatient (CLI) | payer OTHER ==
[2021-04-07 12:30] LABS: ALBUMIN 4.4 g/dL (3.2-5.5); ALBUMIN/GLOBULIN RATIO 1.5 (1.0-2.2); ALKALINE PHOSPHATASE 55 IU/L (42-121); ALT ALANINE AMINOTRANSFERASE 21 IU/L (10-60); AST ASPARTATE AMINOTRANSFERASE 27 IU/L (10-42); BILIRUBIN,TOTAL 0.7 mg/dL (0.2-1.0); BUN - BLOOD UREA NITROGEN 18 mg/dL (6-20); CALCIUM 9.5 mg/dL (8.5-10.3); CARBON DIOXIDE - CO2 29 mmol/L (21-32); CHLORIDE 101 mmol/L (101-111); CHOL/HDL RATIO 2.1 (<4.4); CHOLESTEROL 164 mg/dL; CREATININE 0.9 mg/dL (0.4-1.0); GFR - MDRD 66 (>89); GLUCOSE 221 mg/dL (70-100); HDL CHOLESTEROL 80 mg/dL; LDL CHOLESTEROL,CALCULATED 72 mg/dL; LDL/HDL RATIO 0.9 (<4.4); POTASSIUM 4.7 mmol/L (3.5-5.0); SODIUM 136 mmol/L (135-145); TOTAL PROTEIN 7.4 g/dL (6.7-8.2); TRIGLYCERIDES 62 mg/dL; VLDL CHOLESTEROL 12 mg/dL
[2021-04-07 12:47] LABS: CREATININE,URINE 280.7 mg/dL; MICROALBUM/CREATININE RATIO,UR 0.7 ug/mg (<30.0); MICROALBUMIN,URINE 0.2 mg/dL (0-300.0)
[2021-04-07 12:51] LABS: ESTIMATED AVERAGE GLUCOSE 200 mg/dL (70-100); HEMOGLOBIN A1c% 8.6 % (4.27-6.07)
== END 2021-04-07 23:59 | disposition home or self-care (01) ==
LOC: LAB.WCP 08:00
PROVIDERS: ATTEND Physician Assistant Medical
DX: E10.9 Type 1 diabetes mellitus without complications (principal)
CPT/HCPCS: 36415; 80053; 80061; 82043; 82570; 83036; 83721

== ENCOUNTER 2021-05-03 15:49 | Outpatient (CLI) | payer OTHER ==
[2021-05-03] MEDS ORDERED: IOVERSOL 320 100 ML VIAL IVP ONE ×2 (16:27→17:48)
[2021-05-03] MEDS ORDERED: IOVERSOL 320 50 ML VIAL ONE (16:27)
[2021-05-03 16:37] LABS: BASOPHILS # (AUTO) 0.1 10^3/uL (0.0-0.1); BASOPHILS % (AUTO) 0.9 %; EOSINOPHILS # (AUTO) 0.1 10^3/uL (0.0-0.7); EOSINOPHILS % (AUTO) 1.9 %; HCT - HEMATOCRIT 41.6 % (37.0-47.0); HGB - HEMOGLOBIN 13.8 g/dL (12.0-16.0); LYMPHOCYTES # (AUTO) 2.6 10^3/uL (1.5-3.5); LYMPHOCYTES % (AUTO) 44.4 %; MEAN CORPUSCULAR HEMOGLOBIN 29.5 pg (27.0-31.0); MEAN CORPUSCULAR HGB CONC 33.2 g/dL (32.0-36.0); MEAN CORPUSCULAR VOLUME 88.9 fL (81.0-99.0); MONOCYTES # (AUTO) 0.5 10^3/uL (0.0-1.0); MONOCYTES % (AUTO) 7.8 %; NEUTROPHILS # (AUTO) 2.6 10^3/uL (1.5-6.6); NEUTROPHILS % (AUTO) 44.7 %; PLT - PLATELET COUNT 204 10^3/uL (130-450); RED BLOOD COUNT 4.68 10^6/uL (4.20-5.40); WHITE BLOOD COUNT 5.9 x10^3/uL (4.8-10.8)
[2021-05-03 16:51] LABS: ALBUMIN 4.7 g/dL (3.2-5.5); ALBUMIN/GLOBULIN RATIO 1.6 (1.0-2.2); BILIRUBIN,TOTAL 0.6 mg/dL (0.2-1.0); CALCIUM 9.6 mg/dL (8.5-10.3); CREATININE 0.8 mg/dL (0.4-1.0); POTASSIUM 4.1 mmol/L (3.5-5.0); TOTAL PROTEIN 7.6 g/dL (6.7-8.2)
[2021-05-03] MEDS ORDERED: IOVERSOL 320 50 ML VIAL PO ONE (17:49)
--- NOTE | 2021-05-03 18:53 | CT Report ---
PROCEDURE: Abdomen/Pelvis W INDICATIONS: LEFT LOWER QUAD ABD PAIN CONTRAST: IV CONTRAST: Optiray 320 ml: 100 PO CONTRAST: Isovue 300 ml50 TECHNIQUE: After the administration of weight appropriate dose of intravenous contrast, 5 mm thick sections acqu ired from the diaphragms to the symphysis. 5 mm thick coronal and sagittal reformats were acquired. For radiation dose reduction, the following was used: automated exposure control, adjustment of mA and/or kV according to patient size. Oral contrast was also given. COMPARISON: 03/24/2020 FINDINGS: Image quality: Excellent. ABDOMEN: Lung bases: Mild bibasilar atelectasis. Heart size is normal. Solid organs: Liver and spleen are normal in size and enhancement. Diffuse hepatic steatosis. Gallbl adder is partially decompressed but otherwise unremarkable. Biliary system is non dilated. Pancreas enhances normally. No adrenal nodules. Kidneys demonstrate normal size and enhancement, without hy dronephrosis. Peritoneum and bowel: Bowel loops demonstrate normal wall thickness and caliber. No free fluid or a ir. Normal appendix. Nodes and vessels: No retroperitoneal or mesenteric adenopathy by size criteria. Aorta and inferior vena cava are normal in size. Mild atherosclerotic calcifications of the abdominal aorta without an eurysmal dilatation. Miscellaneous: No ventral hernias. PELVIS: Genitourinary: Bladder wall thickness is normal for degree of distention. Visualized reproductive or zack appear unremarkable as imaged. Miscellaneous: No inguinal hernias or adenopathy. Bones: No suspicious bony lesions. No acute vertebral body compression fractures. IMPRESSION: 1. CT abdomen and pelvis without acute abnormalities. 2. Normal-appearing appendix. 3. Hepatic steatosis. Findings were discussed with Shikha Cedeno at 1850 hrs. Reviewed by: Hal Mora MD on 05/03/2021 6:52 PM PDT Approved by: Hal Mora MD on 05/03/2021 6:52 PM PDT Station ID: [id number]
== END 2021-05-03 15:50 | disposition home or self-care (01) ==
LOC: DI 15:49
PROVIDERS: ATTEND Physician Assistant Medical
DX: R10.32 Left lower quadrant pain (principal); K76.0 Fatty (change of) liver, not elsewhere classified
CPT/HCPCS: 36415; 74177; 80053; 83690; 85025; Q9967

== ENCOUNTER 2021-07-05 13:30 | Outpatient (CLI) | payer OTHER ==
--- NOTE | 2021-07-06 11:59 | Mammography Report ---
BILATERAL DIGITAL SCREENING MAMMOGRAM 3D/2D: 07/05/2021 CLINICAL: Routine screening. Comparison is made to exams dated: 06/15/2020 mammogram, 02/27/2018 mammogram, 03/26/2019 mammogram, 02/09 mammogram, 02/07/2016 mammogram, and 01/15/2015 mammogram - [facility]. The ti ssue of both breasts is heterogeneously dense. This may lower the sensitivity of mammography. There are benign calcifications in both breasts. There also are benign post operative findings in th e right breast. No significant masses, calcifications, or other findings are seen in either breast. There has been no significant interval change. IMPRESSION: BENIGN There is no mammographic evidence of malignancy. A 1 year screening mammogram is recommended. This exam was interpreted at Station ID: [id number]. NOTE: For mammograms, a report in lay terms will be sent to the patient. Approximately 15% of breast malignancies will not be visualized mammographically. In the management of a palpable breast mass, a negative mammogram must not discourage biopsy of a clinically suspicious lesion. Electronically Signed By: Hal Mora M.D. aty/penrad:07/05/2021 15:19:40 ACR BI-RADS Category 2: Benign Finding(s) 3342F PARENCHYMAL PATTERN: (D) - The breast(s) demonstrate(s) heterogeneously dense fibroglandular liz solitario. BI-RADS CATEGORY: (2) - 2 RECOMMENDATION: (ANNUAL) - Recommend routine annual screening mammography. [id number] 1 year screening LATERALITY: (B)
== END 2021-07-05 13:31 | disposition home or self-care (01) ==
LOC: DI 13:30
DX: Z12.31 Encounter for screening mammogram for malignant neoplasm of breast (principal)

== ENCOUNTER 2021-08-10 16:50 | Outpatient (CLI) | payer OTHER ==
--- NOTE | 2021-08-11 09:21 | Ultrasound Report ---
PROCEDURE: Pelvic w/Transvaginal INDICATIONS: LEFT LOWER QUAD ABD PAIN TECHNIQUE: Real-time scanning was performed of the pelvic organs, with image documentation. Additional endovagi nal scanning was necessary due to incomplete visualization of the adnexal and endometrial structures by transabdominal scanning. COMPARISON: None. FINDINGS: No pathologic free abdominal or pelvic fluid. Uterus: Uterus is normal in size at 5.2 x 2.0 x 3.0 cm. The uterus is somewhat heterogeneous in ec ho pattern. There is a small posterior intramural fibroid measuring 1.4 cm maximum diameter. The endo metrium measures 3.6 mm in combined thickness. Ovaries: Right ovary measures 2.8 x 2.0 x 2.5 cm. Left ovary measures 1.3 x 1.1 x 1.8 cm. No abnorma l adnexal masses. IMPRESSION: Unremarkable pelvic ultrasound. Small fibroid incidentally noted. Reviewed by: Kevin Car MD on 08/11/2021 9:20 AM PDT Approved by: Kevin Car MD on 08/11/2021 9:20 AM PDT Station ID: [id number]
== END 2021-08-10 16:51 | disposition home or self-care (01) ==
LOC: DI 16:50
PROVIDERS: ATTEND Physician Assistant Medical
DX: R10.32 Left lower quadrant pain (principal)

== ENCOUNTER 2021-08-12 08:21 | Outpatient (CLI) | payer OTHER ==
[2021-08-12 12:10] LABS: CALCIUM 9.5 mg/dL (8.5-10.3); CREATININE 0.9 mg/dL (0.4-1.0); POTASSIUM 5.1 mmol/L (3.5-5.0)
[2021-08-12 12:46] LABS: ESTIMATED AVERAGE GLUCOSE 189 mg/dL (70-100); HEMOGLOBIN A1c% 8.2 % (4.27-6.07)
== END 2021-08-12 23:59 | disposition home or self-care (01) ==
LOC: LAB.WCP 08:21
PROVIDERS: ATTEND Physician Assistant Medical
DX: E10.49 Type 1 diabetes mellitus with other diabetic neurological complication (principal)
CPT/HCPCS: 36415; 80048; 83036

== ENCOUNTER 2021-12-15 09:56 | Outpatient (CLI) | payer OTHER ==
[2021-12-15 10:32] LABS: ALBUMIN 4.7 g/dL (3.2-5.5); ALBUMIN/GLOBULIN RATIO 1.4 (1.0-2.2); ALKALINE PHOSPHATASE 48 IU/L (42-121); ALT ALANINE AMINOTRANSFERASE 20 IU/L (10-60); AST ASPARTATE AMINOTRANSFERASE 24 IU/L (10-42); BILIRUBIN,TOTAL 0.9 mg/dL (0.2-1.0); BUN - BLOOD UREA NITROGEN 17 mg/dL (6-20); CALCIUM 9.6 mg/dL (8.5-10.3); CARBON DIOXIDE - CO2 29 mmol/L (21-32); CHLORIDE 97 mmol/L (101-111); CHOL/HDL RATIO 2.1 (<4.4); CHOLESTEROL 194 mg/dL; CREATININE 0.9 mg/dL (0.4-1.0); GFR - MDRD 66 (>89); GLUCOSE 160 mg/dL (70-100); HDL CHOLESTEROL 93 mg/dL; LDL CHOLESTEROL,CALCULATED 88 mg/dL; LDL/HDL RATIO 0.9 (<4.4); POTASSIUM 4.5 mmol/L (3.5-5.0); SODIUM 134 mmol/L (135-145); TRIGLYCERIDES 64 mg/dL; VLDL CHOLESTEROL 13 mg/dL
[2021-12-15 12:57] LABS: ESTIMATED AVERAGE GLUCOSE 180 mg/dL (70-100); HEMOGLOBIN A1c% 7.9 % (4.27-6.07)
== END 2021-12-15 09:57 | disposition home or self-care (01) ==
LOC: LAB 09:56
PROVIDERS: ATTEND Physician Assistant Medical
DX: E10.49 Type 1 diabetes mellitus with other diabetic neurological complication (principal)
CPT/HCPCS: 36415; 80053; 80061; 83036; 83721

== ENCOUNTER 2022-05-09 12:54 | Outpatient (CLI) | payer OTHER ==
--- NOTE | 2022-05-09 16:03 | DEXA Report ---
PROCEDURE: Dexa Spine and/or Hip INDICATIONS: POST MENOPAUSAL TECHNIQUE: Dual energy x-ray absorptiometry (DXA) was performed on a [employer] System. Regions measur ed are the AP Spine, femoral neck, and if needed forearm. COMPARISON: None. FINDINGS: Lumbar Spine: Bone Mineral Density 1.221 g/cm/cm,T score 0.3, normal Left Hip: Bone Mineral Density 0.997 g/cm/cm,T score -0.1, normal Left Femoral Neck: Bone Mineral Density 0.985 g/cm/cm, T score -0.4, normal (T score greater or equal to -1.0: NORMAL) (T score from -1.1 to -2.4: OSTEOPENIA) (T score less than or equal to -2.5 to: OSTEOPOROSIS) Impression: Normal bone mineral density. Patients with diagnosis of osteoporosis or osteopenia should have regular bone mineral density assess ment. For those eligible for Medicare, routine testing is allowed once every 2 years. Testing frequ ency can be increased for patients who have rapidly progressing disease or for those who are receivin g medical therapy to restore bone mass. Reviewed by: Wendy Sanon MD on 05/09/2022 4:02 PM PDT Approved by: Wendy Sanon MD on 05/09/2022 4:02 PM PDT Station ID: [id number]
== END 2022-05-09 12:55 | disposition home or self-care (01) ==
LOC: DI 12:54
PROVIDERS: ATTEND Physician Assistant Medical
DX: Z78.0 Asymptomatic menopausal state (principal)

== ENCOUNTER 2022-08-02 08:20 | Outpatient (CLI) | payer OTHER ==
[2022-08-02 08:49] LABS: ALBUMIN 4.6 g/dL (3.2-5.5); ALBUMIN/GLOBULIN RATIO 1.5 (1.0-2.2); ALKALINE PHOSPHATASE 48 IU/L (42-121); ALT ALANINE AMINOTRANSFERASE 17 IU/L (10-60); AST ASPARTATE AMINOTRANSFERASE 25 IU/L (10-42); BILIRUBIN,TOTAL 0.8 mg/dL (0.2-1.0); BUN - BLOOD UREA NITROGEN 18 mg/dL (6-20); CALCIUM 9.8 mg/dL (8.5-10.3); CARBON DIOXIDE - CO2 29 mmol/L (21-32); CHLORIDE 101 mmol/L (101-111); CHOL/HDL RATIO 1.9 (<4.4); CHOLESTEROL 149 mg/dL; CREATININE 0.9 mg/dL (0.4-1.0); GFR - MDRD 65 (>89); GLUCOSE 119 mg/dL (70-100); HDL CHOLESTEROL 78 mg/dL; LDL CHOLESTEROL,CALCULATED 63 mg/dL; LDL/HDL RATIO 0.8 (<4.4); POTASSIUM 4.6 mmol/L (3.5-5.0); SODIUM 137 mmol/L (135-145); TOTAL PROTEIN 7.7 g/dL (6.7-8.2); TRIGLYCERIDES 40 mg/dL; VLDL CHOLESTEROL 8 mg/dL
[2022-08-02 12:22] LABS: ESTIMATED AVERAGE GLUCOSE 163 mg/dL (70-100); HEMOGLOBIN A1c% 7.3 % (4.27-6.07)
== END 2022-08-02 08:21 | disposition home or self-care (01) ==
LOC: LAB 08:20
PROVIDERS: ATTEND Physician Assistant Medical
DX: E10.49 Type 1 diabetes mellitus with other diabetic neurological complication (principal)
CPT/HCPCS: 36415; 80053; 80061; 83036; 83721

== ENCOUNTER 2022-08-29 08:39 | Outpatient (CLI) | payer OTHER ==
--- NOTE | 2022-08-29 11:56 | XRAY Report ---
PROCEDURE: Wrist 3 View RT INDICATIONS: RIGHT WRIST PAIN TECHNIQUE: 3 views of the wrist were acquired. COMPARISON: None FINDINGS: Bones: No suspicious bony lesions. Radial carpal degenerative narrowing is present. There is a punc andre area of calcification adjacent to the radial styloid. Soft tissues: No suspicious soft tissue calcifications. IMPRESSION: Punctate calcification adjacent to the radial styloid. This is indeterminate and could represent smal l avulsion fracture. Recommend correlation point tenderness and follow-up imaging in 7-10 days. Reviewed by: Wendy Sanon MD on 08/29/2022 11:54 AM PST Approved by: Wendy Sanon MD on 08/29/2022 11:54 AM PST Station ID: [id number]
== END 2022-08-29 08:40 | disposition home or self-care (01) ==
LOC: DI.WOS 08:39
PROVIDERS: ATTEND Orthopaedic Surgery
DX: M65.4 Radial styloid tenosynovitis [de Quervain] (principal)

== ENCOUNTER 2023-02-15 08:20 | Outpatient (CLI) | payer OTHER ==
[2023-02-15 08:44] LABS: BASOPHILS # (AUTO) 0.1 10^3/uL (0.0-0.1); BASOPHILS % (AUTO) 1.2 %; EOSINOPHILS # (AUTO) 0.1 10^3/uL (0.0-0.7); EOSINOPHILS % (AUTO) 2.1 %; HCT - HEMATOCRIT 40.6 % (37.0-47.0); HGB - HEMOGLOBIN 13.2 g/dL (12.0-16.0); LYMPHOCYTES # (AUTO) 1.8 10^3/uL (1.5-3.5); LYMPHOCYTES % (AUTO) 40.8 %; MEAN CORPUSCULAR HEMOGLOBIN 28.7 pg (27.0-31.0); MEAN CORPUSCULAR HGB CONC 32.5 g/dL (32.0-36.0); MEAN CORPUSCULAR VOLUME 88.3 fL (81.0-99.0); MEAN PLATELET VOLUME 10.6 fL (7.9-10.8); MONOCYTES # (AUTO) 0.3 10^3/uL (0.0-1.0); MONOCYTES % (AUTO) 7.9 %; NEUTROPHILS # (AUTO) 2.1 10^3/uL (1.5-6.6); NEUTROPHILS % (AUTO) 47.8 %; PLT - PLATELET COUNT 198 10^3/uL (130-450); RED CELL DISTRIBUTION WIDTH 13.4 % (12.0-15.0); WHITE BLOOD COUNT 4.3 x10^3/uL (4.8-10.8)
[2023-02-15 08:55] LABS: CREATININE,URINE 209.8 mg/dL; MICROALBUM/CREATININE RATIO,UR 1.9 ug/mg (<30.0); MICROALBUMIN,URINE 0.4 mg/dL (0-300.0)
[2023-02-15 09:01] LABS: ALBUMIN 4.3 g/dL (3.2-5.5); ALBUMIN/GLOBULIN RATIO 1.5 (1.0-2.2); ALKALINE PHOSPHATASE 51 IU/L (42-121); ALT ALANINE AMINOTRANSFERASE 21 IU/L (10-60); AST ASPARTATE AMINOTRANSFERASE 27 IU/L (10-42); BILIRUBIN,TOTAL 0.7 mg/dL (0.2-1.0); BUN - BLOOD UREA NITROGEN 17 mg/dL (6-20); CALCIUM 9.3 mg/dL (8.5-10.3); CARBON DIOXIDE - CO2 29 mmol/L (21-32); CHLORIDE 98 mmol/L (101-111); CHOL/HDL RATIO 1.8 (<4.4); CHOLESTEROL 143 mg/dL; GFR - MDRD 58 (>89); GLUCOSE 246 mg/dL (70-100); HDL CHOLESTEROL 78 mg/dL; LDL CHOLESTEROL,CALCULATED 53 mg/dL; LDL/HDL RATIO 0.7 (<4.4); POTASSIUM 4.6 mmol/L (3.5-5.0); SODIUM 136 mmol/L (135-145); TOTAL PROTEIN 7.1 g/dL (6.7-8.2); TRIGLYCERIDES 59 mg/dL; VLDL CHOLESTEROL 12 mg/dL
[2023-02-15 09:13] LABS: THYROID STIMULATING HORMONE 4.12 uIU/mL (0.34-5.60)
[2023-02-15 10:28] LABS: ESTIMATED AVERAGE GLUCOSE 169 mg/dL (70-100); HEMOGLOBIN A1c% 7.5 % (4.27-6.07)
== END 2023-02-15 08:21 | disposition home or self-care (01) ==
LOC: LAB 08:20
PROVIDERS: ATTEND Physician Assistant Medical
DX: Z00.00 Encounter for general adult medical examination without abnormal findings (principal); E03.9 Hypothyroidism, unspecified; E10.9 Type 1 diabetes mellitus without complications; E78.5 Hyperlipidemia, unspecified
CPT/HCPCS: 36415; 80048; 80053; 80061; 82043; 82570; 83036; 83721; 84443; 85025

== ENCOUNTER 2023-05-21 06:57 | Outpatient (CLI) | payer OTHER ==
[2023-05-21 07:28] LABS: POTASSIUM 4.3 mmol/L (3.5-4.5)
[2023-05-21 14:24] LABS: ESTIMATED AVERAGE GLUCOSE 180 mg/dL (70-100); HEMOGLOBIN A1c% 7.9 % (4.27-6.07)
== END 2023-05-21 06:58 | disposition home or self-care (01) ==
LOC: LAB 06:57
PROVIDERS: ATTEND Physician Assistant Medical
DX: E10.9 Type 1 diabetes mellitus without complications (principal)
CPT/HCPCS: 36415; 80048; 83036

== ENCOUNTER 2023-06-04 09:48 | Outpatient (CLI) | payer OTHER ==
--- NOTE | 2023-06-05 09:09 | Mammography Report ---
BILATERAL DIGITAL SCREENING MAMMOGRAM 3D/2D: 06/04/2023 CLINICAL: Routine screening. Comparison is made to exams dated: 07/05/2021 mammogram, 06/15/2020 mammogram, 03/26/2019 mammogram, 02/27 mammogram, 02/09/2017 mammogram, and 02/07/2016 mammogram - [facility]. Both breasts are extremely dense, which lowers the sensitivity of mammography (category d />75% gland ular tissue). There are benign calcifications in both breasts. There also are benign post operative findings in th e right breast. No significant masses, calcifications, or other findings are seen in either breast. There has been no significant interval change. IMPRESSION: BENIGN There is no mammographic evidence of malignancy. A 1 year screening mammogram is recommended. Based on Tyrer-Cuzick model (a risk assessment model), the patient's lifetime risk is 21.9% and her 1 0 year risk is 6.3%. If a patient has an elevated risk, a more comprehensive evaluation should be con sidered and/or a referral to a genetic counselor. The [employer], [employer], and NCCN Guidelines advise the consideration of Breast MRI as an adjunct to screening mammog alejo in patients whose "Lifetime risk to develop breast cancer" is 20% or higher. This exam was interpreted at Station ID: [id number]. NOTE: For mammograms, a report in lay terms will be sent to the patient. Approximately 15% of breast malignancies will not be visualized mammographically. In the management of a palpable breast mass, a negative mammogram must not discourage biopsy of a clinically suspicious lesion. Electronically Signed By: Chidi Montes M.D. acr/manuel:06/04/2023 12:02:54 letter sent: No_Letter ACR BI-RADS Category 2: Benign Finding(s) 3342F PARENCHYMAL PATTERN: (VD) - The breast(s) demonstrate(s) extremely dense parenchyma, limiting the sen sitivity of mammography. BI-RADS CATEGORY: (2) - 2 Mammogram [id number] 1 year screening LATERALITY: (B)
== END 2023-06-04 09:49 | disposition home or self-care (01) ==
LOC: DI 09:48
DX: Z12.31 Encounter for screening mammogram for malignant neoplasm of breast (principal)

== ENCOUNTER 2023-08-21 09:00 | Outpatient (CLI) | payer OTHER ==
[2023-08-21 09:40] LABS: ALBUMIN 4.5 g/dL (3.2-5.5); ALBUMIN/GLOBULIN RATIO 1.7 (1.0-2.2); ALKALINE PHOSPHATASE 46 IU/L (42-121); ALT ALANINE AMINOTRANSFERASE 17 IU/L (10-60); AST ASPARTATE AMINOTRANSFERASE 23 IU/L (10-42); BILIRUBIN,TOTAL 0.8 mg/dL (0.2-1.0); BUN - BLOOD UREA NITROGEN 14 mg/dL (6-20); CALCIUM 9.6 mg/dL (8.5-10.3); CARBON DIOXIDE - CO2 31 mmol/L (21-32); CHLORIDE 101 mmol/L (101-111); CHOL/HDL RATIO 1.8 (<4.4); CHOLESTEROL 137 mg/dL; GFR - MDRD 58 (>89); GLUCOSE 191 mg/dL (74-104); HDL CHOLESTEROL 78 mg/dL; LDL CHOLESTEROL,CALCULATED 45 mg/dL; LDL/HDL RATIO 0.6 (<4.4); POTASSIUM 4.3 mmol/L (3.5-4.5); SODIUM 137 mmol/L (135-145); TOTAL PROTEIN 7.1 g/dL (6.4-8.9); TRIGLYCERIDES 72 mg/dL (48-352); VLDL CHOLESTEROL 14 mg/dL
[2023-08-21 09:51] LABS: ESTIMATED AVERAGE GLUCOSE 166 mg/dL (70-100); HEMOGLOBIN A1c% 7.4 % (4.27-6.07)
== END 2023-08-21 09:01 | disposition home or self-care (01) ==
LOC: LAB 09:00
PROVIDERS: ATTEND Physician Assistant Medical
DX: E10.49 Type 1 diabetes mellitus with other diabetic neurological complication (principal)
CPT/HCPCS: 36415; 80053; 80061; 83036; 83721

== ENCOUNTER 2024-01-09 16:06 | Outpatient (CLI) | payer OTHER ==
[2024-01-09 16:46] LABS: CALCIUM 9.5 mg/dL (8.5-10.3); CREATININE 0.9 mg/dL (0.6-1.3); POTASSIUM 4.6 mmol/L (3.5-4.5)
[2024-01-09 17:04] LABS: FECAL OCCULT BLOOD (FIT) NEGATIVE (NEGATIVE); H. PYLORIS ANTIGEN STL NEGATIVE (Negative)
[2024-01-09 21:21] LABS: ESTIMATED AVERAGE GLUCOSE 183 mg/dL (70-100)
== END 2024-01-09 16:07 | disposition home or self-care (01) ==
LOC: LAB 16:06
PROVIDERS: ATTEND Nurse Practitioner
DX: R19.7 Diarrhea, unspecified (principal); E10.49 Type 1 diabetes mellitus with other diabetic neurological complication
CPT/HCPCS: 36415; 80048; 82274; 83036; 83993; 87045; 87046; 87177; 87209; 87329; 87338; 87427; 87493

== ENCOUNTER 2024-01-19 06:58 | Outpatient (CLI) | payer OTHER ==
--- NOTE | 2024-01-19 18:28 | Ultrasound Report ---
PROCEDURE: Abdomen Limited INDICATIONS: RUQ PAIN TECHNIQUE: Real-time focused scanning was performed of the abdomen, with image documentation. COMPARISONS: CT of abdomen and pelvis dated 05/03/2021 and 03/24/2020. FINDINGS: Liver: Liver is normal in size and mildly heterogeneous in echotexture. Gallbladder: There is no gallstones. No gallbladder wall thickening or pericholecystic fluid. No sono graphic Crook's sign.. Biliary ducts: Intrahepatic bile ducts are non-dilated. Extrahepatic bile duct caliber measures 2 m m. Normal is 6-7 mm or less in diameter, or 10 mm or less post-cholecystectomy. Pancreas: Visualized portions of the pancreas are sonographically normal. Right kidney: Normal in size and echotexture. Right kidney measures 8.5 cm long. No hydronephrosis. A 5 x 6 x 3 mm echogenic focus is noted in lower pole right kidney. No solid masses. No complex renal cystic lesions which require follow-up. Aorta: Visualized aorta is normal in caliber at less than 3 cm. IVC: Intrahepatic inferior vena cava is patent. Miscellaneous: No free abdominal fluid. IMPRESSION: 1. Mildly heterogeneous liver parenchymal echotexture is suggestive of hepatic steatosis. No discrete hepatic lesion. 2. Normal-appearing gallbladder. No biliary ductal dilatation. Normal-appearing pancreas. 3. Nonobstructing stone in lower pole right kidney. No hydronephrosis. Reviewed by: Olayinka Belle MD on 01/19/2024 6:27 PM PDT Approved by: Olayinka Belle MD on 01/19/2024 6:27 PM PDT Station ID: [id number]
== END 2024-01-19 06:59 | disposition home or self-care (01) ==
LOC: DI 06:58
PROVIDERS: ATTEND Registered Nurse
DX: R10.11 Right upper quadrant pain (principal); N20.0 Calculus of kidney; R19.5 Other fecal abnormalities; R19.7 Diarrhea, unspecified

== ENCOUNTER 2024-02-24 15:18 | Emergency (ER) | payer OTHER ==
--- NOTE | 2024-02-24 15:32 | ED Physician Documentation ---
PD HPI ABD PAIN - Chief complaint Chief Complaint: Abd Pain - History obtained from History obtained from: Patient - History of Present Illness Timing - onset: How many weeks ago (several) Timing - duration: Weeks (with significant worsening last night into today.) Timing - details: Gradual onset, Still present (She has had undulating amounts of pain over the last few weeks with severe at times but only briefly and baseline pain of 2-3 out of 10. She states much more consistent and severe last evening into today.), Waxing and waning Quality: Cramping, Aching, Pain Location: Epigastric, Periumbilical Radiation: Lower back. No: Chest Improved by: No: Laying still, Position Worsened by: Eating Associated symptoms: Nausea, Diarrhea (loose with malodor but small volume and only 2-3 times daily.). No: Fever, Vomiting, Constipation Similar symptoms before: No diagnosis Recently seen: Clinic (seen for the intermittent upper abd pains and had outpt US RUQ 01/19/24 with normal findings. No acute proocess.) Review of Systems Constitutional: denies: Fever, Chills, Myalgias Cardiac: denies: Chest pain / pressure, Palpitations Respiratory: denies: Dyspnea, Cough GI: reports: Abdominal Pain, Nausea, Diarrhea. 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 : None HEENT: Other Psych: Depression Musculoskeletal: Osteoarthritis Derm: None - Past Surgical History Past Surgical History: Yes Ortho: Carpal Tunnel surgery, Spine surgery - Present Medications Home Medications: Ambulatory Orders Medication Instructions Recorded Confirmed Insulin Aspart [NovoLOG] 36 units SUBQ DAILY 11/23/17 02/24/24 Atorvastatin [Lipitor] 20 mg PO QPM 02/24/24 02/24/24 Citalopram Hydrobromide 40 mg PO DAILY 02/24/24 02/24/24 [Citalopram HBr] Gabapentin [Neurontin] 300 mg PO HS 02/24/24 02/24/24 HYDROcod/ACETAM 5/325 [[place] 5/325] 1 ea PO Q6H PRN #12 tablet 02/24/24 Levothyroxine [Synthroid] 25 mcg PO QDAC 02/24/24 02/24/24 Meloxicam [Mobic] 7.5 mg PO BID 10 Days #20 tablet 02/24/24 Ondansetron Odt [Zofran] 4 mg TL Q6H PRN #10 tablet 02/24/24 - Allergies Allergies/Adverse Reactions: Allergies Allergy/AdvReac Type Severity Reaction Status Date / Time Sulfa (Sulfonamide AdvReac Intermediate Hives Verified 02/24/24 15:21 Antibiotics) amoxicillin [Amoxicillin] AdvReac Unknown Unknown Verified 02/24/24 15:21 Penicillins AdvReac Unknown Unknown Verified 02/24/24 15:21 acetaminophen [From Percocet] AdvReac Itching Verified 02/24/24 15:21 oxycodone AdvReac Itching Verified 02/24/24 15:21 - Social History Does the pt smoke?: No Smoking Status: Never smoker Does the pt drink ETOH?: Yes Does the pt have substance abuse?: Yes Substance Use and Type: Marijuana - Immunizations Immunizations are current?: Yes - POLST Patient has POLST: No PD ED PE NORMAL - Vitals Vital signs reviewed: Yes - General General: Alert and oriented X 3, Well developed/nourished, Other (appears in pain) - Cardiac Cardiac: RRR, No murmur - Respiratory Respiratory: No respiratory distress, Clear bilaterally - Abdomen Abdomen: Normal bowel sounds, Soft, No organomegaly, Other (markedly tender mid abdomen, with some to epigastric as well as lower right abd. There is percussion tenrderness. ) Results - Vitals Vitals: Vital Signs - 24 hr 02/24/24 02/24/24 15:21 18:55 Temperature 36.3 C L Heart Rate 70 70 Respiratory 16 16 Rate Blood Pressure 128/84 H 114/78 O2 Saturation 98 96 Oxygen O2 Source Room air - Labs Labs: Laboratory Tests 02/24/24 02/24/24 02/24/24 15:33 15:33 15:33 WBC 9.0 RBC 4.86 Hgb 13.8 Hct 43.4 MCV 89.3 MCH 28.4 MCHC 31.8 L RDW 13.3 Plt Count 213 MPV 10.6 Neut # (Auto) 6.4 Lymph # (Auto) 2.0 Ferry # (Auto) 0.5 Eos # (Auto) 0.1 Baso # (Auto) 0.1 Absolute Nucleated RBC 0.00 Nucleated RBC % 0.0 ESR 2 Sodium 137 Potassium 3.8 Chloride 101 Carbon Dioxide 31 Anion Gap 5.0 L BUN 16 Creatinine 1.0 Estimated GFR (MDRD) 58 L Glucose 192 H Calcium 10.2 Magnesium Total Bilirubin 0.5 AST 20 ALT 15 Alkaline Phosphatase 56 C-Reactive Protein Total Protein 7.7 Albumin 4.7 Globulin 3.0 Albumin/Globulin Ratio 1.6 Lipase 49 Urine Color Urine Clarity Urine pH Ur Specific [place] Urine Protein Urine Glucose (UA) Urine Ketones Urine Occult Blood Urine Nitrite Urine Bilirubin Urine Urobilinogen Ur Leukocyte Esterase Ur Microscopic Review Urine Culture Comments Urine HCG, Qual 02/24/24 02/24/24 02/24/24 15:33 15:45 15:45 WBC RBC Hgb Hct MCV MCH MCHC RDW Plt Count MPV Neut # (Auto) Lymph # (Auto) Ferry # (Auto) Eos # (Auto) Baso # (Auto) Absolute Nucleated RBC Nucleated RBC % ESR Sodium Potassium Chloride Carbon Dioxide Anion Gap BUN Creatinine Estimated GFR (MDRD) Glucose Calcium Magnesium 1.6 L Total Bilirubin AST ALT Alkaline Phosphatase C-Reactive Protein < 0.5 Total Protein Albumin Globulin Albumin/Globulin Ratio Lipase Urine Color YELLOW Urine Clarity CLEAR Urine pH 6.0 Ur Specific [place] 1.025 Urine Protein NEGATIVE Urine Glucose (UA) 100 H Urine Ketones TRACE Urine Occult Blood NEGATIVE Urine Nitrite NEGATIVE Urine Bilirubin NEGATIVE Urine Urobilinogen 0.2 (NORMAL) Ur Leukocyte Esterase NEGATIVE Ur Microscopic Review NOT INDICATED Urine Culture Comments NOT INDICATED Urine HCG, Qual NEGATIVE PD Medical Decision Making - ED course Complexity details: reviewed results, re-evaluated patient (pain is improved reasonable well. Able to lie in bed comfortably. ), considered differential (She has had upper abdominal pain intermittently and bit more consistently over several weeks. Consideration for gallbladder pancreas or liver. On Prilosec without improvement. Considerably worse last night into today but mid to lower abdomen now.), d/w patient, d/w surgical product sales consultant (Dr. Roach, food and beverage controller for surgery, who reviewed the CT scan and shared dsicussion with me. Feels clinically low for acute appendicitis, though chronic possible. Air in appendix right now precluded clogged. And there is descending colitis. Does not feel surgical at this point. f/u colonoscopy soon.) Reviewed Lab Results: White count is normal at 9. LFTs and lipase are within normal range. No if he has electrolyte or blood sugar abnormality. At this point not clear the cause of her symptoms and I feel imaging of a CT scan is appropriate. She had had a ultrasound did not show any acute abnormality. Her primary care was looking at ordering a HIDA scan. Given the location of her pain now kind of mid to even lower abdominal tenderness, I feel a CT scan is going to provide a broader view and incorporate more potential diagnoses. The patient is in agreement. She had an IV started and given the degree of pain and tenderness, we did give some IV fluids along with Toradol, Zofran, fentanyl. She is sensitive/allergic to oxycodone, causing nausea. She also is sensitive to morphine having had a response of redness and nausea and lightheadedness when given a dose on a previous occasion. ED course: The patient has been having intermittent mid to upper abdominal pain not patterned with particular foods or meals. This has been occurring over the last several weeks to a month or more. She had been prescribed Prilosec without any notable consistent improvement. Went to her primary care with blood test and stool studies that the patient reports were negative. She had been still continuing with pain intermittently and then became much more severe last night into today in the similar location but greater intensity. She is also noticing pain with movement and lying flat as well as nausea. She states she did have an ultrasound did not show any abnormalities several weeks ago. Her primary care was attempted to schedule her for a HIDA scan. Given the areas of colitis descending colon and also periappendiceal, I wonder if there has been some transverse colon episodes givning the upper abd pain at times, rather than it being gallbladder or stomach as would expect by he location. Departure - Departure Disposition: 01 Home, Self Care Clinical Impression: Acute abdominal pain, Chronic appendicitis, Acute colitis, Diabetes Condition: Stable Record reviewed to determine appropriate education?: Yes Follow-Up: Shikha Cedeno PA-C [Primary Care Provider] - Bonita Roach MD [Provider Admit Priv/Credential] - Prescriptions: Meloxicam [Mobic] 7.5 mg PO BID 10 Days #20 tablet HYDROcod/ACETAM 5/325 [[place] 5/325] 1 ea PO Q6H PRN #12 tablet PRN Reason: Pain Ondansetron Odt [Zofran] 4 mg TL Q6H PRN #10 tablet PRN Reason: Nausea / Vomiting Comments: Continue with usual medications. Add regular anti-inflammatory with food for the next 7 to 10 days. Do that add acetaminophen 500 to 650 mg 4 times daily for pain. Stay well-hydrated. [place] and soft food initially for day or so. Add hydrocodone/acetaminophen if needed for worse pain and ondansetron if needed for nausea. I did talk with our surgeon on-call. They reviewed the CT films. Even though there is some swelling of the appendix with some mild inflammation around it, it did not have the visual and indicators for what would look like acute appendicitis. More likely is a chronic appendix with recurring inflammation. On the CT scan there was also an area of inflammation of the colon on the other side of the abdomen and the descending colon. This gives thought to the idea that the current pain episodes in the ones you have been having recently are intermittent or segmental areas of inflammation of the colon. The next diagnostic progression would be a colonoscopy. I did provide the phone number for the surgery office. Call and see if they are able to see you in follow-up primarily or if you need preapproval from your primary care or [place]. In the short-term for the current acute episode, if you are not having considerable improvement in the next day or 2 or worsening, in particular with worse pain, fever, repetitive vomiting, bloody stool etc. then please return to the ER for reevaluation. I sent prescriptions for your symptoms to your preferred pharmacy. I am prescribing a short course of narcotic pain medication for you. These are potentially dangerous and addictive medications that should be used carefully. These medications may constipate you. Take an lron-fhi-ymkttrn stool softener such as docusate twice daily with plenty of water while taking these medications. If you go 24 hours without a bowel movement, take [id number] MiraLAX, per package instructions. Do not drink or drive while taking these medications. If you received narcotic or sedating medications while in the emergency department do not drive for 24 hours. Store this medication in a safe, secure place and out of reach of children. It is a violation of federal law to give or sell this medication to another person or to use in a manner other than prescribed. The ED will not refill narcotic prescriptions, including prescriptions lost or stolen. You can dispose of unwanted medications at the [facility]'s office or at several pharmacies such as [facility]. Forms: PCP List Discharge Date/Time: 02/24/24 18:56
[2024-02-24 15:42] LABS: BASOPHILS # (AUTO) 0.1 10^3/uL (0.0-0.1); BASOPHILS % (AUTO) 0.7 %; EOSINOPHILS # (AUTO) 0.1 10^3/uL (0.0-0.7); EOSINOPHILS % (AUTO) 1.1 %; HCT - HEMATOCRIT 43.4 % (37.0-47.0); HGB - HEMOGLOBIN 13.8 g/dL (12.0-16.0); LYMPHOCYTES % (AUTO) 21.9 %; MEAN CORPUSCULAR HEMOGLOBIN 28.4 pg (27.0-31.0); MEAN CORPUSCULAR HGB CONC 31.8 g/dL (32.0-36.0); MEAN CORPUSCULAR VOLUME 89.3 fL (81.0-99.0); MEAN PLATELET VOLUME 10.6 fL (7.9-10.8); MONOCYTES # (AUTO) 0.5 10^3/uL (0.0-1.0); MONOCYTES % (AUTO) 5.3 %; NEUTROPHILS # (AUTO) 6.4 10^3/uL (1.5-6.6); NEUTROPHILS % (AUTO) 70.9 %; PLT - PLATELET COUNT 213 10^3/uL (130-450); RED BLOOD COUNT 4.86 10^6/uL (4.20-5.40); RED CELL DISTRIBUTION WIDTH 13.3 % (12.0-15.0)
[2024-02-24 15:52] LABS: ALBUMIN 4.7 g/dL (3.2-5.5); ALBUMIN/GLOBULIN RATIO 1.6 (1.0-2.2); BILIRUBIN,TOTAL 0.5 mg/dL (0.2-1.0); CALCIUM 10.2 mg/dL (8.5-10.3); POTASSIUM 3.8 mmol/L (3.5-4.5); TOTAL PROTEIN 7.7 g/dL (6.4-8.9)
[2024-02-24] MEDS ORDERED: iohexoL-300 100 ML VIAL ONE (15:56)
[2024-02-24 15:57] LABS: BILIRUBIN,URINE NEGATIVE (NEGATIVE); GLUCOSE, URINE (UA) 100 mg/dL (NEGATIVE); KETONES,URINE (UA) TRACE mg/dL (NEGATIVE); LEUKOCYTE ESTERASE, URINE NEGATIVE (NEGATIVE); NITRITE,URINE NEGATIVE (NEGATIVE); OCCULT BLOOD,URINE NEGATIVE (NEGATIVE); PROTEIN,URINE NEGATIVE (NEGATIVE); UROBILINOGEN,URINE 0.2 (NORMAL) E.U./dL (NORMAL)
[2024-02-24 15:59] LABS: CLARITY,URINE CLEAR (CLEAR); HCG UR QUAL NEGATIVE
[2024-02-24] MEDS: fentaNYL 100 MCG/2 ML VIAL IVP STA ×2 (16:00→18:39)
[2024-02-24] MEDS: KETOROLAC 15 MG/ML VIAL IVP STA (16:00)
[2024-02-24] MEDS: SODIUM CHLORIDE 0.9% 1,000 ML IV STA (16:00)
[2024-02-24] MEDS: ONDANSETRON 4 MG/2 ML VIAL IVP STA (16:00)
[2024-02-24 16:08] LABS: CRP - C-REACTIVE PROTEIN < 0.5 mg/dL (<0.5); MAGNESIUM 1.6 mg/dL (1.7-2.3)
--- NOTE | 2024-02-24 16:47 | CT Report ---
PROCEDURE: Abdomen/Pelvis W INDICATIONS: abd pain for days, worse; similar over weeks CONTRAST: 100ml omni 300 TECHNIQUE: After the administration of intravenous contrast, a CT scan of the abdomen and pelvis was performed. Images were recorded and evaluated at appropriate window settings. Reformats: coronal and sagittal. F or radiation dose reduction, the following was used: automated exposure control, adjustment of mA and /or kV according to patient size. COMPARISON: 05/03/2021. Correlation is also made with abdominal ultrasound, 01/19/2024. FINDINGS: Image quality: Diagnostic. Lower chest: Unremarkable. Liver: No solid mass. Gallbladder and biliary tree: Within normal limits. Spleen: No splenomegaly. Pancreas: No pancreatic ductal dilation. Adrenals: No adrenal nodule. Kidneys and ureters: No hydronephrosis. No renal cystic lesion which requires follow up. No solid mas s. Stomach, bowel and peritoneum: There is moderate generalized wall thickening seen involving the dist al colon, beginning at the level of the splenic flexure. The more proximal colon is within normal cramer its. No dilated loops of small bowel are seen. No significant abnormality of the stomach can be seen. The appendix appears abnormal, with minimal surrounding inflammatory change. The appendix measures up to 1.4 cm. Lymph nodes: No central or retroperitoneal adenopathy. Vessels: No infrarenal aortic aneurysm. PELVIS Reproductive organs: The uterus demonstrates an unremarkable appearance for age. No adnexal masses ar e seen. Bladder: No abnormal wall thickening, accounting for underdistention. Pelvic lymph nodes: No pelvic adenopathy by size criteria. Bones: No aggressive osseous abnormality. Focal L5-S1 degenerative change is seen. Milder degenerativ e changes are seen elsewhere. Other: No significant ventral or inguinal hernia. IMPRESSION: Distal colonic wall thickening can be seen. Please correlate with potential infectious and inflammato ry causes of colitis. No findings of perforation or abscess can be seen. The appendix is abnormal, with increased caliber, with minimal surrounding inflammatory change. Pleas e consider chronic appendicitis. No findings of perforation or abscess are detected. The appendix pre viously demonstrated a normal appearance. Additional findings: Focal L5-S1 degenerative change Reviewed by: Celso Nam MD on 02/24/2024 3:46 PM AKDT Approved by: Celso Nam MD on 02/24/2024 3:46 PM AKDT Station ID: [id number]
[2024-02-24] MEDS: DEXTROSE 10% 250 ML IV STA (17:38)
[2024-02-24] MEDS: iohexoL-300 100 ML VIAL IVP ONE (17:59)
[2024-02-24] MEDS: ACETAMINOPHEN 325 MG TABLET PO STA (18:39)
[2024-02-24] MEDS: ONDANSETRON ODT 4 MG Prepack 2 TL PRN (18:40)
[2024-02-24] MEDS: HYDROcod/ACET 5/325 Prepack 4 PO STA (18:40)
[2024-02-24 18:58] VITALS: BP 114/78; O2SAT 96
== END 2024-02-24 18:56 | disposition home or self-care (01) ==
LOC: ED 15:18
DX: K36 Other appendicitis (principal); K52.9 Noninfective gastroenteritis and colitis, unspecified; E10.9 Type 1 diabetes mellitus without complications; R10.13 Epigastric pain; E78.00 Pure hypercholesterolemia, unspecified; E03.9 Hypothyroidism, unspecified; Z86.718 Personal history of other venous thrombosis and embolism; Z79.4 Long term (current) use of insulin; Z79.899 Other long term (current) drug therapy
CPT/HCPCS: 36415; 74177; 80053; 81003; 81025; 83690; 83735; 85025; 85651; 86140; 96361; 96365; 96375; 99284; A9270; J3490; Q9967; 81001; 87086

== ENCOUNTER 2024-02-25 13:36 | Observation (INO) | payer OTHER ==
[2024-02-25 14:09] LABS: BASOPHILS % (AUTO) 0.4 %; EOSINOPHILS % (AUTO) 0.4 %; HCT - HEMATOCRIT 38.9 % (37.0-47.0); HGB - HEMOGLOBIN 12.3 g/dL (12.0-16.0); LYMPHOCYTES # (AUTO) 1.3 10^3/uL (1.5-3.5); LYMPHOCYTES % (AUTO) 13.2 %; MEAN CORPUSCULAR HEMOGLOBIN 28.3 pg (27.0-31.0); MEAN CORPUSCULAR HGB CONC 31.6 g/dL (32.0-36.0); MEAN CORPUSCULAR VOLUME 89.4 fL (81.0-99.0); MEAN PLATELET VOLUME 10.3 fL (7.9-10.8); MONOCYTES # (AUTO) 0.7 10^3/uL (0.0-1.0); MONOCYTES % (AUTO) 6.8 %; NEUTROPHILS # (AUTO) 7.7 10^3/uL (1.5-6.6); NEUTROPHILS % (AUTO) 78.9 %; PLT - PLATELET COUNT 169 10^3/uL (130-450); RED BLOOD COUNT 4.35 10^6/uL (4.20-5.40); RED CELL DISTRIBUTION WIDTH 13.2 % (12.0-15.0); WHITE BLOOD COUNT 9.7 x10^3/uL (4.8-10.8)
[2024-02-25 14:26] LABS: ALBUMIN 4.2 g/dL (3.2-5.5); ALBUMIN/GLOBULIN RATIO 1.8 (1.0-2.2); BILIRUBIN,TOTAL 0.7 mg/dL (0.2-1.0); CALCIUM 9.5 mg/dL (8.5-10.3); POTASSIUM 4.1 mmol/L (3.5-4.5); TOTAL PROTEIN 6.5 g/dL (6.4-8.9)
[2024-02-25] MEDS: SODIUM CHLORIDE 0.9% 1,000 ML IV STA (15:07)
[2024-02-25] MEDS: MORPHINE 2 MG/ML CARPUJECT IVP STA (15:16)
[2024-02-25] MEDS: ONDANSETRON 4 MG/2 ML VIAL IVP STA (15:16)
[2024-02-25 15:17] LABS: VBG PH 7.362 (7.31-7.41)
[2024-02-25 15:18] LABS: VBG BASE EXCESS -0.1 mmol/L (-2 - +2); VBG HCO3 25.7 mmol/L (23-28); VBG OXYGEN SATURATION 46.4 % (60-80); VBG PCO2 46.3 mmHg (41-51); VBG PO2 24.4 mmHg (25-47); VBG TOTAL CO2 27.1 mmol/L (24-29)
--- NOTE | 2024-02-25 15:25 | ED Physician Documentation ---
PD HPI ABD PAIN - Stated complaint Stated Complaint: ABD PX - Chief complaint Chief Complaint: Abd Pain - History obtained from History obtained from: Patient - Additional information Additional information: Patient is a 53-year-old female with a history of insulin-dependent diabetes presenting for evaluation of worsening right lower quadrant abdominal pain. Patient was seen yesterday for this pain. She has been having generalized abdominal pain over the last 3 months but yesterday it seemed more focal in the right lower quadrant. She had imaging done which showed a slightly enlarged appendix and this was discussed with on-call general surgery. It was felt that this was likely chronic appendicitis. Patient was discharged home with anti- inflammatories, narcotic pain medication as well as Zofran. She states that the pain has not improved and has not been bearable with the pain medication. She additionally continues to have nausea despite the use of the antiemetic. She has had a prior colonoscopy approximately 4 years ago. Review of Systems Constitutional: denies: Fever Cardiac: denies: Chest pain / pressure Respiratory: denies: Dyspnea GI: reports: Abdominal Pain, Nausea, Vomiting : denies: Dysuria PD PAST MEDICAL HISTORY - Past Medical History Past Medical History: Yes Cardiovascular: High cholesterol, Deep vein thrombosis, Other Respiratory: Pneumonia Endocrine/Autoimmune: Type 1 diabetes, HyPOthyroidism GI: None RN BUILDING: None : None HEENT: Other Psych: Depression Musculoskeletal: Osteoarthritis Derm: None - Past Surgical History Past Surgical History: Yes Ortho: Carpal Tunnel surgery, Spine surgery - Present Medications Home Medications: Ambulatory Orders Medication Instructions Recorded Confirmed Insulin Aspart [NovoLOG] 36 units SUBQ DAILY 11/23/17 02/25/24 Atorvastatin [Lipitor] 20 mg PO QPM 02/24/24 02/25/24 Citalopram Hydrobromide 40 mg PO DAILY 02/24/24 02/25/24 [Citalopram HBr] Gabapentin [Neurontin] 300 mg PO HS 02/24/24 02/25/24 HYDROcod/ACETAM 5/325 [[place] 5/325] 1 ea PO Q6H PRN #12 tablet 02/24/24 02/25/24 Levothyroxine [Synthroid] 25 mcg PO QDAC 02/24/24 02/25/24 Meloxicam [Mobic] 7.5 mg PO BID 10 Days #20 tablet 02/24/24 02/25/24 Ondansetron Odt [Zofran] 4 mg TL Q6H PRN #10 tablet 02/24/24 02/25/24 - Allergies Allergies/Adverse Reactions: Allergies Allergy/AdvReac Type Severity Reaction Status Date / Time Sulfa (Sulfonamide AdvReac Intermediate Hives Verified 02/25/24 13:40 Antibiotics) amoxicillin [Amoxicillin] AdvReac Unknown Unknown Verified 02/25/24 13:40 Penicillins AdvReac Unknown Unknown Verified 02/25/24 13:40 acetaminophen [From Percocet] AdvReac Itching Verified 02/25/24 13:40 oxycodone AdvReac Itching Verified 02/25/24 13:40 - Social History Does the pt smoke?: No Smoking Status: Never smoker Does the pt drink ETOH?: Yes Does the pt have substance abuse?: Yes - Immunizations Immunizations are current?: Yes - POLST Patient has POLST: No PD ED PE NORMAL - General General: Alert and oriented X 3, No acute distress, Well developed/nourished - HEENT HEENT: Atraumatic, Moist mucous membranes, Pharynx benign - Neck Neck: Supple, no meningeal sign - Cardiac Cardiac: RRR, Strong equal pulses - Respiratory Respiratory: No respiratory distress, Clear bilaterally - Abdomen Abdomen: Normal bowel sounds, Soft, Non distended, Other (Right lower quadrant tenderness) - Derm Derm: Warm and dry - Neuro Neuro: Normal speech Results - Vitals Vitals: Vital Signs - 24 hr 02/25/24 02/25/24 02/25/24 13:40 15:36 15:48 Temperature 36.8 C 37.1 C Heart Rate 84 84 Respiratory 16 20 Rate Blood Pressure 106/65 121/82 H O2 Saturation 97 97 Oxygen O2 Source Room air - Labs Labs: Laboratory Tests 02/25/24 02/25/24 02/25/24 14:04 14:04 14:04 WBC 9.7 RBC 4.35 Hgb 12.3 Hct 38.9 MCV 89.4 MCH 28.3 MCHC 31.6 L RDW 13.2 Plt Count 169 MPV 10.3 Neut # (Auto) 7.7 H Lymph # (Auto) 1.3 L [place] # (Auto) 0.7 Eos # (Auto) 0.0 Baso # (Auto) 0.0 Absolute Nucleated RBC 0.00 Nucleated RBC % 0.0 VBG pH VBG pCO2 VBG pO2 VBG HCO3 VBG Total CO2 VBG O2 Saturation VBG Base Excess Sodium 136 Potassium 4.1 Chloride 100 L Carbon Dioxide 31 Anion Gap 5.0 L BUN 13 Creatinine 1.0 Estimated GFR (MDRD) 58 L Glucose 209 H Calcium 9.5 Total Bilirubin 0.7 AST 17 ALT 12 Alkaline Phosphatase 41 L Total Protein 6.5 Albumin 4.2 Globulin 2.3 Albumin/Globulin Ratio 1.8 Lipase 19 Serum Ketones NEGATIVE 02/25/24 15:14 WBC RBC Hgb Hct MCV MCH MCHC RDW Plt Count MPV Neut # (Auto) Lymph # (Auto) [place] # (Auto) Eos # (Auto) Baso # (Auto) Absolute Nucleated RBC Nucleated RBC % VBG pH 7.362 VBG pCO2 46.3 VBG pO2 24.4 L VBG HCO3 25.7 VBG Total CO2 27.1 VBG O2 Saturation 46.4 L VBG Base Excess -0.1 Sodium Potassium Chloride Carbon Dioxide Anion Gap BUN Creatinine Estimated GFR (MDRD) Glucose Calcium Total Bilirubin AST ALT Alkaline Phosphatase Total Protein Albumin Globulin Albumin/Globulin Ratio Lipase Serum Ketones PD Medical Decision Making - ED course Complexity details: reviewed results, re-evaluated patient, d/w patient, d/w family ED course: Patient is a 53-year-old female with worsening right lower quadrant pain. She was seen yesterday and had a CT scan with a slightly dilated appendix but this was more concerning for chronic appendicitis and her symptoms were a bit unclear as she had also been having abdominal pain ongoing for a few months. Labs yesterday and repeated today are unrevealing with normal white count and electrolytes. However on exam she does have marked tenderness in the right lower quadrant. Therefore I did consult with on-call general surgery Dr. Roach who evaluated the patient at the bedside. Feels that her symptoms today are more concerning for acute appendicitis and will admit for antibiotic and continued observation. Patient did receive IV fluids, Zofran and IV morphine.She is a diabetic but does not appear to be in DKA. 1520 - D/W Dr. Roach. She will come see pt. Departure - Departure Disposition: ED Place in Observation Clinical Impression: Appendicitis Condition: Stable
--- NOTE | 2024-02-25 16:06 | SURGERY HX AND PHYSICAL(T) ---
Surgical History & Physical - Chief Complaint/HPI Chief Complaint: chronic diarrhea, acutely worse abdominal pain History of Present Illness: The patient has been struggling with loose stools and vague abdominal pain for approximately 4 months. She is unable to look at her stool closely enough to assess if there is blood in it and has low vision secondary to her diabetes. She has had stool studies per her report that were unrevealing. Sunday evening, the patient had acute onset of worsening abdominal pain that started in the periumbilical region and has migrated to the right lower quadrant. Her pain has slowly worsened over that time. Her pain is associated with nausea but no vomiting. Her pain is made worse by palpation, bumps in the road, and attempting to void or defecate. She denies any fevers or chills. She has never had similar pain in the past. 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 Urinary: None Musculoskeletal: Osteoarthritis Blood Disorders: None Psychiatric: Depression Orthopedic: Carpal Tunnel surgery, Spine surgery Smoking Status: Never smoker Does the pt drink ETOH?: Yes Frequency: Occasional Does the pt have substance abuse?: Yes - Family Hx Family Hx: Unremarkable - Home Meds and Allergies Home Medications: Insulin Aspart [NovoLOG] 36 units SUBQ DAILY 11/23/17 Atorvastatin [Lipitor] 20 mg PO QPM 02/24/24 Citalopram Hydrobromide [Citalopram HBr] 40 mg PO DAILY 02/24/24 Gabapentin [Neurontin] 300 mg PO HS 02/24/24 Levothyroxine [Synthroid] 25 mcg PO QDAC 02/24/24 Allergies/Adverse Reactions: Allergies Allergy/AdvReac Type Severity Reaction Status Date / Time Sulfa (Sulfonamide AdvReac Intermediate Hives Verified 02/25/24 13:40 Antibiotics) amoxicillin [Amoxicillin] AdvReac Unknown Unknown Verified 02/25/24 13:40 Penicillins AdvReac Unknown Unknown Verified 02/25/24 13:40 acetaminophen [From Percocet] AdvReac Itching Verified 02/25/24 13:40 oxycodone AdvReac Itching Verified 05/06/24 13:40 - Review of Systems Constitutional: Other (A complete 10 point review of symptoms is otherwise nega tive except for that noted in HPI and PMH.) - Vital Signs Heart Rate: 84 Blood Pressure: 121/82 Temperature: 37.1 C Respiratory Rate: 20 O2 Saturation: 97 Weight (kg): 61.1 kg Height: 1.57 m - Physical Exam Comments/Other: GEN: No acute distress, appears younger than stated age, alert and oriented HEENT: NCAT, MMM, EOMI NEURO: CN II-XII grossly intact, no obvious focal deficits CV: RRR, no murmer appreciated PULM: Nonlabored, on room air ABD: soft, exquisite tenderness to the right lower quadrant, positive involuntary guarding in the right lower quadrant, no rebound, positive Rovsing sign, mild tenderness to palpation throughout the remainder of the abdomen CIRCULATORY: no clubbing, cyanosis, or edema SKIN: Vitiligo noted on face and upper extremities LYMPH: no obvious lymphadenopathy MSK: 4/4 strength in all extremities PSYCH: Affect is appropriate - Patient Review Patient Review: Problems were reviewed with the patient during this visit. Medications were reviewed with the patient during this visit. Allergies were reviewed this patient during this visit. Pertinent Tests Reviewed: All pertitent test for this patient were reviewed. - Assessment & Plan Assessment and Plan: This is a 53-year-old female with: 1. Acute appendicitis The patient's vital signs and laboratory studies are within normal limits, with only a slight left shift today in her leukocyte count. -I personally reviewed the patient's images and report from her CT scan yesterd ay that does reveal an enlarged appendix as well as descending colitis. She has no free air and no significant free fluid. The patient's history of chronic diarrhea is concerning for inflammatory bowel disease. Today, the patient's symptoms have worsened and localized to the right lower quadrant. She has only been having right lower quadrant abdominal pain for approximately 36 hours. I explained the above findings with the patient and discussed options to treat her enlarged appendix including antibiotics and surgery. Surgery in the setting of inflammatory bowel disease is associated wit h increased complications. In shared decision making, the patient and I elected to proceed with conservative treatment of her appendicitis at this time. Given the patient's antibiotic allergies, we will use cefepime. If her symptoms do not improve over the next 24 hours, we may reconsider the possibility of laparoscopic appendectomy. The patient last ate at approximately 11:00 this morning, I will make her n.p.o. except for sips and chips until her symptoms are improving. -IV fluids, pain and nausea medication have been ordered. 2. Type 1 diabetes The patient has a continuous glucose monitor and insulin pump. She may manage her own blood sugars as she does at home 3. Hypothyroidism, hyperlipidemia, restless leg syndrome, depression I will continue the patient's home medications once they have been reconciled. The patient is currently admitted under observation status.
[2024-02-25] MEDS: CEFEPIME 2 GM in SODIUM CHLORIDE 0.9% MINIBAG 100 ML IV STA (16:09)
[2024-02-25] MEDS: ACETAMINOPHEN 325 MG TABLET PO SCH (17:07)
[2024-02-25] MEDS: ONDANSETRON 4 MG/2 ML VIAL IVP PRN (17:07)
[2024-02-25] MEDS: HYDROmorphone 0.5 MG/0.5 ML SYRINGE IVP PRN (17:08)
[2024-02-25] MEDS: SODIUM CHLORIDE 0.9% 1,000 ML IV SCH (17:08)
[2024-02-25] MEDS: PROCHLORPERAZINE 10 MG/2 ML VIAL IVP PRN (21:24)
[2024-02-25 22:04] LABS: BILIRUBIN,URINE NEGATIVE (NEGATIVE); GLUCOSE, URINE (UA) 100 mg/dL (NEGATIVE); KETONES,URINE (UA) 15 mg/dL (NEGATIVE); LEUKOCYTE ESTERASE, URINE NEGATIVE (NEGATIVE); NITRITE,URINE NEGATIVE (NEGATIVE); OCCULT BLOOD,URINE NEGATIVE (NEGATIVE); PROTEIN,URINE NEGATIVE (NEGATIVE); UROBILINOGEN,URINE 0.2 (NORMAL) E.U./dL (NORMAL)
[2024-02-25 22:06] LABS: CLARITY,URINE CLEAR (CLEAR)
[2024-02-26] MEDS: CEFEPIME 2 GM in SODIUM CHLORIDE 0.9% MINIBAG 100 ML IV SCH (04:01)
--- NOTE | 2024-02-26 07:04 | PROVIDER PROGRESS NOTE ---
Subjective - General Admit Date: 02/25/24 - Other Other Information/Narrative: Pain controlled with meds, still having pain with movement. Nausea overnight, medication helping. No fevers,chills. No vomiting. No acute events overnight. Objective - Patient Data Vital Signs: Vital Signs x48h Temp Pulse Resp BP Pulse Ox 02/26/24 00:30 36.8 C 87 20 98/59 L 91 L Weight: Weight 02/24/24 02/25/24 02/26/24 23:59 23:59 23:59 Weight (kg) 61.1 kg Intake & Output: Intake and Output Totals x24h 02/24/24 02/25/24 02/26/24 23:59 23:59 23:59 Intake Total 1200 935.417 Output Total 400 Balance 800 935.417 - Lab Results Lab Results: 02/25/24 14:04 02/25/24 14:04 Other Lab Results: Lab Results x24hrs 02/25/24 02/25/24 02/25/24 Range/Units 22:00 17:42 15:14 WBC (4.8-10.8) x10^3/uL RBC (4.20-5.40) 10^6/uL Hgb (12.0-16.0) g/dL Hct (37.0-47.0) % MCV (81.0-99.0) fL MCH (27.0-31.0) pg MCHC (32.0-36.0) g/dL RDW (12.0-15.0) % Plt Count (130-450) 10^3/uL MPV (7.9-10.8) fL Neut # (Auto) (1.5-6.6) 10^3/uL Lymph # (Auto) (1.5-3.5) 10^3/uL [place] # (Auto) (0.0-1.0) 10^3/uL Eos # (Auto) (0.0-0.7) 10^3/uL Baso # (Auto) (0.0-0.1) 10^3/uL Absolute Nucleated RBC x10^3/uL Nucleated RBC % /100WBC VBG pH 7.362 (7.31-7.41) VBG pCO2 46.3 (41-51) mmHg VBG pO2 24.4 L (25-47) mmHg VBG HCO3 25.7 (23-28) mmol/L VBG Total CO2 27.1 (24-29) mmol/L VBG O2 Saturation 46.4 L (60-80) % VBG Base Excess -0.1 (-2 - +2) mmol/L Sodium (135-145) mmol/L Potassium (3.5-4.5) mmol/L Chloride (101-111) mmol/L Carbon Dioxide (21-32) mmol/L Anion Gap (6-13) BUN (6-20) mg/dL Creatinine (0.6-1.3) mg/dL Estimated GFR (MDRD) (>89) Glucose (74-104) mg/dL POC Whole Bld Glucose 165 H (70 - 100) mg/dL Calcium (8.5-10.3) mg/dL Total Bilirubin (0.2-1.0) mg/dL AST (10-42) IU/L ALT (10-60) IU/L Alkaline Phosphatase (42-121) IU/L Total Protein (6.4-8.9) g/dL Albumin (3.2-5.5) g/dL Globulin (2.1-4.2) g/dL Albumin/Globulin Ratio (1.0-2.2) Lipase (11-82) U/L Urine Color YELLOW Urine Clarity CLEAR (CLEAR) Urine pH 6.0 (5.0-7.5) PH Ur Specific [facility] >=1.030 H (1.002-1.030) Urine Protein NEGATIVE (NEGATIVE) mg/dL Urine Glucose (UA) 100 H (NEGATIVE) mg/dL Urine Ketones 15 H (NEGATIVE) mg/dL Urine Occult Blood NEGATIVE (NEGATIVE) Urine Nitrite NEGATIVE (NEGATIVE) Urine Bilirubin NEGATIVE (NEGATIVE) Urine Urobilinogen 0.2 (NORMAL) (NORMAL) E.U./dL Ur Leukocyte Esterase NEGATIVE (NEGATIVE) Ur Microscopic Review NOT INDICATED Urine Culture Comments NOT INDICATED Serum Ketones (NEGATIVE) 02/25/24 02/25/24 02/25/24 Range/Units 14:04 14:04 14:04 WBC 9.7 (4.8-10.8) x10^3/uL RBC 4.35 (4.20-5.40) 10^6/uL Hgb 12.3 (12.0-16.0) g/dL Hct 38.9 (37.0-47.0) % MCV 89.4 (81.0-99.0) fL MCH 28.3 (27.0-31.0) pg MCHC 31.6 L (32.0-36.0) g/dL RDW 13.2 (12.0-15.0) % Plt Count 169 (130-450) 10^3/uL MPV 10.3 (7.9-10.8) fL Neut # (Auto) 7.7 H (1.5-6.6) 10^3/uL Lymph # (Auto) 1.3 L (1.5-3.5) 10^3/uL [place] # (Auto) 0.7 (0.0-1.0) 10^3/uL Eos # (Auto) 0.0 (0.0-0.7) 10^3/uL Baso # (Auto) 0.0 (0.0-0.1) 10^3/uL Absolute Nucleated RBC 0.00 x10^3/uL Nucleated RBC % 0.0 /100WBC VBG pH (7.31-7.41) VBG pCO2 (41-51) mmHg VBG pO2 (25-47) mmHg VBG HCO3 (23-28) mmol/L VBG Total CO2 (24-29) mmol/L VBG O2 Saturation (60-80) % VBG Base Excess (-2 - +2) mmol/L Sodium 136 (135-145) mmol/L Potassium 4.1 (3.5-4.5) mmol/L Chloride 100 L (101-111) mmol/L Carbon Dioxide 31 (21-32) mmol/L Anion Gap 5.0 L (6-13) BUN 13 (6-20) mg/dL Creatinine 1.0 (0.6-1.3) mg/dL Estimated GFR (MDRD) 58 L (>89) Glucose 209 H (74-104) mg/dL POC Whole Bld Glucose (70 - 100) mg/dL Calcium 9.5 (8.5-10.3) mg/dL Total Bilirubin 0.7 (0.2-1.0) mg/dL AST 17 (10-42) IU/L ALT 12 (10-60) IU/L Alkaline Phosphatase 41 L (42-121) IU/L Total Protein 6.5 (6.4-8.9) g/dL Albumin 4.2 (3.2-5.5) g/dL Globulin 2.3 (2.1-4.2) g/dL Albumin/Globulin Ratio 1.8 (1.0-2.2) Lipase 19 (11-82) U/L Urine Color Urine Clarity (CLEAR) Urine pH (5.0-7.5) PH Ur Specific [facility] (1.002-1.030) Urine Protein (NEGATIVE) mg/dL Urine Glucose (UA) (NEGATIVE) mg/dL Urine Ketones (NEGATIVE) mg/dL Urine Occult Blood (NEGATIVE) Urine Nitrite (NEGATIVE) Urine Bilirubin (NEGATIVE) Urine Urobilinogen (NORMAL) E.U./dL Ur Leukocyte Esterase (NEGATIVE) Ur Microscopic Review Urine Culture Comments Serum Ketones NEGATIVE (NEGATIVE) - Current Medications Current Medications: Current Medications Generic Name Dose Route Start Last Admin Trade Name Freq PRN Reason Stop Dose Admin Acetaminophen 650 mg 02/25/24 16:00 02/26/24 04:01 Acetaminophen 325 Mg Tablet PO 650 mg Q4H AMY Administration Hydromorphone HCl 0.5 mg 02/25/24 15:52 02/26/24 05:08 Hydromorphone 0.5 Mg/0.5 Ml Syringe IVP 0.5 mg Q2H PRN Administration Breakthrough Pain Sodium Chloride 1,000 mls @ 125 mls/hr 02/25/24 16:00 02/26/24 00:37 Normal Saline 0.9% IV 125 mls/hr .Q8H AMY Administration Cefepime HCl 2 gm/ Sodium 100 mls @ 200 mls/hr 02/26/24 04:00 02/26/24 04:01 Chloride IV 200 mls/hr Q12H AMY Administration Ondansetron HCl 4 mg 02/25/24 15:52 02/26/24 04:49 Ondansetron 4 Mg/2 Ml Vial IVP 4 mg Q6HR PRN Administration Nausea / Vomiting Prochlorperazine Edisylate 10 mg 02/25/24 20:53 02/25/24 21:24 Prochlorperazine 10 Mg/2 Ml Vial IVP 10 mg Q6HR PRN Administration Nausea / Vomiting - Physical Exam Comments/Other: Gen: NAD, alert and oriented CV: RRR Pulm: non labored on RA Abd: soft with ttp in RLQ, neg Rovsing, neg rebound Ext: no c/c/e Impression/Plan - Problem List Problem List: This is a 53-year-old female with: 1. Acute appendicitis AM labs pending -CT scan 02/23 demonstrates an enlarged appendix as well as descending colitis. She has no free air and no significant free fluid. The patient's history of chronic diarrhea is concerning for inflammatory bowel disease. Today, the patient is more comfortable, but still having pain, nausea. Surgery in the setting of inflammatory bowel disease is associated with increased complications. Plan to continue with conservative treatment of her appendicitis this morning, and revisit planning with patient this afternoon. Given the patient's antibiotic allergies, using cefepime. If her symptoms do not continue to improve, we may reconsider the possibility of laparoscopic appendectomy. sips/chips at this time -IV fluids, pain and nausea medication have been ordered. 2. Type 1 diabetes The patient has a continuous glucose monitor and insulin pump. She may manage her own blood sugars as she does at home 3. Hypothyroidism, hyperlipidemia, restless leg syndrome, depression I will continue the patient's home medications once they have been reconciled. The patient is currently admitted under observation status.
[2024-02-26 07:21] LABS: BASOPHILS % (AUTO) 0.2 %; EOSINOPHILS % (AUTO) 0.2 %; HCT - HEMATOCRIT 34.4 % (37.0-47.0); HGB - HEMOGLOBIN 11.2 g/dL (12.0-16.0); LYMPHOCYTES % (AUTO) 11.2 %; MEAN CORPUSCULAR HEMOGLOBIN 29.6 pg (27.0-31.0); MEAN CORPUSCULAR HGB CONC 32.6 g/dL (32.0-36.0); MEAN CORPUSCULAR VOLUME 90.8 fL (81.0-99.0); MEAN PLATELET VOLUME 10.9 fL (7.9-10.8); MONOCYTES # (AUTO) 0.8 10^3/uL (0.0-1.0); MONOCYTES % (AUTO) 8.7 %; NEUTROPHILS # (AUTO) 7.1 10^3/uL (1.5-6.6); NEUTROPHILS % (AUTO) 79.4 %; PLT - PLATELET COUNT 141 10^3/uL (130-450); RED BLOOD COUNT 3.79 10^6/uL (4.20-5.40); RED CELL DISTRIBUTION WIDTH 13.4 % (12.0-15.0); WHITE BLOOD COUNT 8.9 x10^3/uL (4.8-10.8)
[2024-02-26 07:37] LABS: CALCIUM 8.9 mg/dL (8.5-10.3); CREATININE 0.9 mg/dL (0.6-1.3)
--- NOTE | 2024-02-26 09:06 | PHARMACY PROGRESS NOTE ---
- Best Possible Medication History Admit Date and Time: 02/25/24 1551 Processed by: Pharmacy Medications reviewed in ED?: Yes Medication History completed: Yes Patient Interview: Completed (by manager pharmacyColton) Secondary Source(s): Physician records, Insurance records As the person ultimately responsible for medication therapy, providers are able to order a medication from an existing home medication list in [facility] via the "Reconcile Routine" prior to Confirmation of that medication by network support technician. Such practice is discouraged except when the physician, in their clinical judgment, deems that a medical need exists for a medication without regard to previous use.
[2024-02-26] MEDS: DEXTROSE 50% ABBOJECT 25 GM/50 ML SYRINGE IVP ONE (11:27)
[2024-02-26] MEDS: DEXTROSE 10% 250 ML IV STA (12:25)
[2024-02-26] MEDS ORDERED: LIDOCAINE 1%-EPI 1:100000 20 ML MDV ONE (14:58)
[2024-02-26] MEDS ORDERED: BUPIVACAINE 0.25% PF 30 ML VIAL ONE (14:59)
--- NOTE | 2024-02-26 16:08 | ANESTHESIA ---
Pre-Anesthesia VS, & Labs - Diagnosis APPENDICITIS - Procedure LAPARASCOPIC APPENDECTOMY Vital Signs: Temp Pulse Resp BP Pulse Ox O2 Flow Rate 36.9 C 72 20 114/76 95 02/26/24 15:47 02/26/24 15:47 02/26/24 15:47 02/26/24 15:47 02/26/24 15:47 Height: 5 ft 2 in Weight (kg): 61.1 kg Body Mass Index: 24.6 BMI Classification: Normal - NPO >8 hours - Is Patient ?: No (PT AND DENY ANY CHANCE OF , PERIMENOPAUSAL; REFUSE URINE TEST) - Lab Results Current Lab Results: Laboratory Tests 02/26/24 14:32: POC Whole Bld Glucose 205 H 02/26/24 12:20: POC Whole Bld Glucose 121 H 02/26/24 11:16: POC Whole Bld Glucose 68 L 02/26/24 11:11: POC Whole Bld Glucose 73 02/26/24 07:08: Sodium 137, Potassium 4.0, Chloride 107, Carbon Dioxide 26, Anion Gap 4.0 L, BUN 15, Creatinine 0.9, Estimated GFR (MDRD) 65 L, Glucose 84, Calcium 8.9 02/26/24 05:00: WBC 8.9, RBC 3.79 L, Hgb 11.2 L, Hct 34.4 L, MCV 90.8, MCH 29.6, MCHC 32.6, RDW 13.4, Plt Count 141, MPV 10.9 H, Neut # (Auto) 7.1 H, Lymph # (Auto) 1.0 L, [place] # (Auto) 0.8, Eos # (Auto) 0.0, Baso # (Auto) 0.0, Absolute Nucleated RBC 0.00, Nucleated RBC % 0.0 02/25/24 17:42: POC Whole Bld Glucose 165 H 02/25/24 15:14: VBG pH 7.362, VBG pCO2 46.3, VBG pO2 24.4 L, VBG HCO3 25.7, VBG Total CO2 27.1, VBG O2 Saturation 46.4 L, VBG Base Excess -0.1 02/25/24 14:04: Serum Ketones NEGATIVE 02/25/24 14:04: Sodium 136, Potassium 4.1, Chloride 100 L, Carbon Dioxide 31, Anion Gap 5.0 L, BUN 13, Creatinine 1.0, Estimated GFR (MDRD) 58 L, Glucose 209 H, Calcium 9.5, Total Bilirubin 0.7, AST 17, ALT 12, Alkaline Phosphatase 41 L, Total Protein 6.5, Albumin 4.2, Globulin 2.3, Albumin/Globulin Ratio 1.8, Lipase 19 02/25/24 14:04: WBC 9.7, RBC 4.35, Hgb 12.3, Hct 38.9, MCV 89.4, MCH 28.3, MCHC 31.6 L, RDW 13.2, Plt Count 169, MPV 10.3, Neut # (Auto) 7.7 H, Lymph # (Auto) 1.3 L, [place] # (Auto) 0.7, Eos # (Auto) 0.0, Baso # (Auto) 0.0, Absolute Nucleated RBC 0.00, Nucleated RBC % 0.0 Fish Bones: 02/26/24 05:00 02/26/24 07:08 Home Medications and Allergies Active Medications Acetaminophen (Acetaminophen 325 Mg Tablet) 650 mg PO Q4H [facility] Last Admin: 02/26/24 12:25 Dose: 650 mg Hydromorphone HCl (Hydromorphone 0.5 Mg/0.5 Ml Syringe) 0.5 mg IVP Q2H PRN PRN Reason: Breakthrough Pain Last Admin: 02/26/24 15:52 Dose: 0.5 mg Sodium Chloride (Normal Saline 0.9%) 1,000 mls @ 125 mls/hr IV .Q8H [facility] Last Admin: 02/26/24 09:13 Dose: 125 mls/hr Cefepime HCl 2 gm/ Sodium (Chloride) 100 mls @ 200 mls/hr IV Q12H [facility] Last Infusion: 02/26/24 09:13 Dose: Infused Ibuprofen (Ibuprofen 600 Mg Tablet) 600 mg PO Q6H PRN PRN Reason: PAIN 5-7 Ondansetron HCl (Ondansetron 4 Mg/2 Ml Vial) 4 mg IVP Q6HR PRN PRN Reason: Nausea / Vomiting Last Admin: 02/26/24 11:05 Dose: 4 mg Prochlorperazine Edisylate (Prochlorperazine 10 Mg/2 Ml Vial) 10 mg IVP Q6HR PRN PRN Reason: Nausea / Vomiting Last Admin: 02/25/24 21:24 Dose: 10 mg Insulin Aspart [NovoLOG] 0 units SUBQ DAILY 11/23/17 Atorvastatin [Lipitor] 20 mg PO QPM 02/24/24 Citalopram Hydrobromide [Citalopram HBr] 40 mg PO DAILY 02/24/24 Gabapentin [Neurontin] 300 mg PO HS 02/24/24 Levothyroxine [Synthroid] 25 mcg PO QDAC 02/24/24 Allergies/Adverse Reactions: Allergies Allergy/AdvReac Type Severity Reaction Status Date / Time Sulfa (Sulfonamide AdvReac Intermediate Hives Verified 02/25/24 13:40 Antibiotics) amoxicillin [Amoxicillin] AdvReac Unknown Unknown Verified 02/25/24 13:40 Penicillins AdvReac Unknown Unknown Verified 02/25/24 13:40 acetaminophen [From Percocet] AdvReac Itching Verified 02/25/24 13:40 oxycodone AdvReac Itching Verified 02/25/24 13:40 Anes History & Medical History - Anesthetic History Anesthesia Complications: reports: No previous complications Family history of Anesthesia Complications: Denies - Medical History Cardiovascular: reports: High cholesterol, Deep vein thrombosis (HX OF), Other Pulmonary: reports: Pneumonia (HX OF) Gastrointestinal: reports: None Urinary: reports: None Neuro: reports: None Musculoskeletal: reports: Osteoarthritis Endocrine/Autoimmune: reports: Type 1 diabetes, HyPOthyroidism Blood Disorders: reports: None Skin: reports: None Smoking Status: Never smoker Psychosocial: reports: No issues indicated - Surgical History Orthopedic: reports: Carpal Tunnel surgery, Spine surgery Exam General: Alert, Oriented x3 Dental: WNL Mouth Openin Fingerbreadth Neck Mobility: Normal Mallampati classification: II Respiratory: Lungs clear Cardiovascular: Regular rate Plan Anesthesia Type: General Consent for Procedure(s) Verified and Reviewed: Yes Code Status: Attempt Resuscitation ASA classification: 3-Severe systemic disease Is this case an emergency?: Yes
[2024-02-26] MEDS ORDERED: NALOXONE 0.4 MG/ML VIAL IVP PRN (16:10)
[2024-02-26] MEDS ORDERED: ONDANSETRON 4 MG/2 ML VIAL IVP PRN (16:10)
[2024-02-26] MEDS ORDERED: METOCLOPRAMIDE 10 MG/2 ML VIAL IVP PRN (16:10)
[2024-02-26] MEDS ORDERED: ATROPINE ABBOJECT 1 MG/10 ML SYRINGE IVP PRN (16:10)
[2024-02-26] MEDS ORDERED: fentaNYL 100 MCG/2 ML VIAL IVP PRN (16:10)
[2024-02-26] MEDS ORDERED: ePHEDrine 50 MG/ML VIAL IVP PRN (16:10)
[2024-02-26] MEDS ORDERED: fentaNYL 100 MCG/2 ML VIAL ONE (16:16)
[2024-02-26] MEDS ORDERED: PROPOFOL 200 MG/20 ML VIAL IVP ONE (16:16)
[2024-02-26] MEDS ORDERED: MIDAZOLAM 2 MG/2 ML VIAL ONE (16:16)
[2024-02-26] MEDS ORDERED: ROCURONIUM 50 MG/5 ML VIAL ONE (16:16)
[2024-02-26] MEDS: BUPIVACAINE 0.25% PF 30 ML VIAL SUBQ ONE (16:57)
[2024-02-26] MEDS: LIDOCAINE MPF 2%-EPI 1:200000 20 ML VIAL SUBQ ONE (16:57)
[2024-02-26] MEDS ORDERED: LACTATED RINGERS 1,000 ML IV SCH (17:00)
[2024-02-26] MEDS ORDERED: ONDANSETRON 4 MG/2 ML VIAL ONE (17:01)
[2024-02-26] MEDS ORDERED: DEXAMETHASONE 4 MG/ML VIAL ONE (17:01)
[2024-02-26] MEDS ORDERED: SUGAMMADEX 200 MG/2 ML VIAL IVP ONE (17:04)
[2024-02-26] MEDS ORDERED: HYDROcod/ACETAM 5/325 MG TABLET PO PRN (17:41)
[2024-02-26] MEDS ORDERED: HYDROmorphone 0.5 MG/0.5 ML SYRINGE IVP PRN (17:41)
[2024-02-26] MEDS: LACTATED RINGERS 1,000 ML IV ONE ×2 (17:44→18:40)
--- NOTE | 2024-02-26 17:50 | OPERATIVE REPORT ---
Operative Report - General Admit Date: 02/25/24 Procedure Date: 02/26/24 Planned Procedure: laparoscopic appendectomy Pre-Op Diagnosis: acute appendicitis, failed conservative management Procedure Performed: laparoscopic appendectomy Post Op Diagnosis: acute gangrenous appendicitis - Procedure Note Primary Surgeon: Dr. Bee Roach Anesthesia Provider: Bobby Clemens CRNA Anesthesia Technique: General ET tube, Local Pathology: appendix and contents Estimated Blood Loss (mL): 10 Urine Output (mL): 30 Indications: The patient presented to the emergency department with right lower quadrant abdominal pain of acute onset, for 2 days. She has underlying chronic abdominal pain, but states this pain is new and far worse. Her pain is associated with nausea but no vomiting. She denied any fevers or chills. Her CT scan is consistent with an inflamed appendix, although it has air within it, and minimal surrounding inflammatory change. She also had descending colitis on her CT scan and normal laboratory studies. With the additional area of colitis, the specter of inflammatory bowel disease was raised, and an initial attempt to control and improve the patient's appendicitis with IV antibiotics was made. After less than 24 hours, the patient did not feel her symptoms were improving and in shared decision making opted for surgical intervention. We discussed the risks, benefits, and alternatives of the procedure including bleeding, infection, damage to surrounding structures, and the need for further surgeries or procedures. Additionally, I discussed that with the possibility of inflammatory bowel disease, there is an increased risk for complication from appendectomy. The patient voiced understanding, her questions were answered, and she wished to proceed with surgery. A consent was signed by the patient. Findings: 1.Acute, gangrenous appendicitis without rupture Complications: None - Other Other Information/Narrative: The patient was brought to the operative suite and placed in the supine position. General endotracheal anesthesia was induced. A Mcdonough catheter was plac ed. The patient is on scheduled antibiotics, and no additional perioperative antibiotics were given. ERAS protocol was not followed due to the patient's pre op nausea. A preop surgical timeout was performed. Local anesthetic was injected into the skin and subcutaneous tissues just superior to the umbilicus. An 11 blade scalpel was used to make a 5 mm transverse skin incision in this location. Next, a hemostat was used to spread the tissues down to the level of the fascia and a Lilian clamp was used to grasp and elevate the umbilical stalk. A Varess needle was used to gain access to the peritoneal space. Low flow insufflation revealed low pressures and then high flow insufflation was undertaken to 15 mmHg. Next, the Varess needle was removed and a 5 mm laparoscopic port was inserted in this location. Through this port, a 5 mm 30 degree laparoscope was inserted. On inspection of the abdomen no injury was caused on entry, but the omentum was slightly insufflated. Next, the patient was placed in Trendelenburg and rotated slightly to the left. 2 more ports were inserted. A 5 mm port was inserted in the suprapubic region, and a 12 mm port was inserted in the left lower quadrant. Both ports were placed by first anesthetizing the skin and subcutaneous tissues with local anesthetic, then by making an appropriate length incision with an 11 blade scalpel, and finally by placing the port under direct laparoscopic vision. Once the ports were in place, 2 atraumatic graspers were used to identify the area of concern. The appendix, terminal ileum, and cecum were identified. There was marked inflammation and gangrenous change of the appendix. Gentle dissection with an atraumatic grasper and sharp dissection with a [place] harmonic scalpel was used to free the lateral attachments of the appendix and to divide mesoappendix, taking care to stay close to the appendix. Then, the base of the appendix was divided with the stapler, using a blue load. Great care was taken to ensure that only the base of the appendix was within the jaws of the stapler and then it was fired. The staple line was inspected and noted to be hemostatic. Next, the appendix was placed in an Endo Catch bag and removed through the left lower quadrant port. The left lower quadrant port was then reinserted. Again, the staple line was inspected and noted to be hemostatic. A small amount of serous fluid was suctioned from the right lower quadrant and pelvis. Next, a laparoscopic fascial closure device was used to place a single, interrupted 0 Vicryl suture at the left lower quadrant port. This reapproximated the fascia well. The remaining ports were removed under direct laparoscopic vision and the abdomen was deflated. Next, the skin edges were reapproximated with 4-0 Monocryl in an interrupted subcuticular fashion. A sterile dressing of skin glue was placed. The Mcdonough catheter was removed at the end of the case. The patient was extubated in the operating room and transferred to the recovery room in stable condition. There were no complications.
[2024-02-26] MEDS: LORazepam 2 MG/ML VIAL IVP STA (19:06)
[2024-02-26] MEDS: GABAPENTIN 300 MG CAPSULE PO SCH (21:21)
[2024-02-26] MEDS: ATORVASTATIN 10 MG TABLET PO SCH (21:21)
--- NOTE | 2024-02-27 03:16 | ANESTHESIA POST OP EVALUATION ---
Anesthesia Post Eval - Post Anesthesia Eval Vitals: Last Vital Signs Temp 37.2 C 02/26/24 23:33 Pulse 102 H 02/26/24 23:33 Resp 20 02/26/24 23:33 BP 110/67 02/26/24 23:33 Pulse Ox 93 02/26/24 23:33 O2 Flow Rate 2 02/26/24 19:33 CV Function Including HR & BP: Stable Pain Control: Satisfactory Nausea & Vomiting: Negative Mental Status: Baseline Respiratory Status: Airway Patent Hydration Status: Satisfactory Anesthesia Complications: None
[2024-02-27] MEDS: IBUPROFEN 600 MG TABLET PO PRN (03:47)
[2024-02-27 05:29] VITALS: O2SAT 94
[2024-02-27] MEDS ORDERED: diphenhydrAMINE 25 MG CAPSULE PO PRN (05:40)
[2024-02-27] MEDS: LEVOTHYROXINE 25 MCG TABLET PO SCH (06:11)
--- NOTE | 2024-02-27 07:19 | Discharge Plan ---
Discharge Plan Problem Reviewed?: Yes Disposition: Home, Self Care Condition: Good Prescriptions: polyethylene glycoL 3350(BULK) [Miralax] 17 gm PO DAILY #238 gm HYDROcod/ACETAM 5/325 [[place] 5/325] 1 tab PO Q4H PRN #5 tablet PRN Reason: Pain Diet: Diabetic Activity Restrictions: No Restrictions Shower Restrictions: Yes (no tub baths or swimming for 2 weeks) Driving Restrictions: Yes (do not drive while taking narcotic pain meds) Weight Bearing: Full Weight Instruction Topics: Appendectomy Laparoscopic Dc, Appendicitis Care Goals: continue to improve Assessment: patient much more comfortable this AM. Tolerating diet, ambulating, voiding. Stable for discharge. Additional Instructions or Follow Up instructions: f/u with Dr. Roach in 2 weeks. No Smoking: If you smoke, Please STOP! Call for help.
--- NOTE | 2024-02-27 07:22 | DISCHARGE SUMMARY ---
"Discharge Summary Admit Date: 02/25/24 Discharge Date: 02/27/24 Discharging Provider: Dr. Bee Roach Code Status: Attempt Resuscitation Condition at Discharge: Good Discharge Disposition: 01 Home, Self Care [facility]charge [facility] - DIAGNOSES Admission Diagnoses: acute appendicitis descending colitis chronic diarrhea DM, type I hypothyroidism RLS Discharge Diagnoses with Status of Each Condition: acute gangrenous appendicitis without perforation, s/p lap appendectomy, POD#1 descending colitis, stable chronic diarrhea, stable, planning for colonoscopy in f/u DM, type I, stable continue home regimen hypothyroidism, stable continue home meds RLS, stable, continue home meds - HPI History of Present Illness: The patient has been struggling with loose stools and vague abdominal pain for approximately 4 months. She is unable to look at her stool closely enough to assess if there is blood in it and has low vision secondary to her diabetes. She has had stool studies per her report that were unrevealing. Sunday evening, the patient had acute onset of worsening abdominal pain that started in the periumbilical region and has migrated to the right lower quadrant. Her pain has slowly worsened over that time. Her pain is associated with nausea but no vomiting. Her pain is made worse by palpation, bumps in the road, and attempting to void or defecate. She denies any fevers or chills. She has never had similar pain in the past. - CONSULTS | PROCEDURES Consultations: none Procedures: lap appendectomy, 02/26/24 - HOSPITAL COURSE Hospital Course: The patient was admitted and initially started on conservative management with antibiotics for her appendicitis. on HD#2, she felt she was not improving and we shared decision making regarding the plan, opting to proceed with surgery at that time. The patient underwent laparoscopic appendectomy and was found to have acute, gangrenous appendicitis without rupture. Postoperatively, the patient has done well. She is tolerating a diet, her pain is controlled with oral medication and she is able to ambulate without assistance. At this time, she is stable for discharge to home. I would like her to f/u with me in clinic in 2 weeks. We will discuss her diarrhea at that time, and if it has not resolved, will plan for colonoscopy in the coming weeks. - ALLERGIES Allergies/Adverse Reactions: Allergies Allergy/AdvReac Type Severity Reaction Status Date / Time Sulfa (Sulfonamide AdvReac Intermediate Hives Verified 02/25/24 13:40 Antibiotics) amoxicillin [Amoxicillin] AdvReac Unknown Unknown Verified 02/25/24 13:40 Penicillins AdvReac Unknown Unknown Verified 02/25/24 13:40 hydrocodone AdvReac Itching Verified 02/26/24 18:18 oxycodone AdvReac Itching Verified 02/25/24 13:40 - MEDICATIONS Home Medications: Ambulatory Orders Medication Instructions Recorded Confirmed Insulin Aspart [NovoLOG] 0 units SUBQ DAILY 11/23/17 02/26/24 Atorvastatin [Lipitor] 20 mg PO QPM 02/24/24 02/25/24 Citalopram Hydrobromide 40 mg PO DAILY 02/24/24 02/25/24 [Citalopram HBr] Gabapentin [Neurontin] 300 mg PO HS 02/24/24 02/25/24 HYDROcod/ACETAM 5/325 [[place] 5/325] 1 ea PO Q6H PRN #12 tablet 02/24/24 02/25/24 Levothyroxine [Synthroid] 25 mcg PO QDAC 02/24/24 02/25/24 Meloxicam [Mobic] 7.5 mg PO BID 10 Days #20 tablet 02/24/24 02/25/24 Ondansetron Odt [Zofran] 4 mg TL Q6H PRN #10 tablet 02/24/24 02/25/24 HYDROcod/ACETAM 5/325 [[place] 5/325] 1 tab PO Q4H PRN #5 tablet 02/27/24 polyethylene glycoL 3350(BULK) 17 gm PO DAILY #238 gm 02/27/24 [Miralax] - PHYSICAL EXAM AT DISCHARGE General Appearance: positive: No acute distress, Alert Eyes Bilateral: positive: Normal inspection ENT: positive: No signs of dehydration Neck: positive: Trachea midline Respiratory: positive: No respiratory distress Cardiovascular: positive: Regular rate & rhythm Abdomen: positive: Tenderness (appropriate for post op), Other (incisions c/d/i) Skin: positive: No rash Extremities: positive: Full ROM Neurologic/Psychiatric: positive: Oriented x3 - LABS Result Diagrams: 02/26/24 05:00 02/26/24 07:08 - FOLLOW UP Follow Up: Dr. Roach in 2 weeks. Please call office if there are questions regarding your appointment. [phone]. - TIME SPENT Time Spent in Discharge (Minutes): 35"
[2024-02-27 07:25] LABS: CALCIUM 9.1 mg/dL (8.5-10.3); POTASSIUM 4.1 mmol/L (3.5-4.5)
[2024-02-27] MEDS: INSULIN ASPART 100 UNIT/ML SUBQ SCH (09:10)
[2024-02-27] MEDS: INSULIN PUMP SUBQ SCH (09:10)
[2024-02-27] MEDS: CITALOPRAM HYDROBROMIDE 20 MG TABLET PO SCH (09:11)
[2024-02-27] MEDS: diphenhydrAMINE ELIXIR 25 MG/10 ML UDC PO PRN (09:44)
[2024-02-27] MEDS: HYDROcod/ACETAM 5/325 MG TABLET PO PRN (09:44)
[2024-02-27 12:36] VITALS: BP 113/70
== END 2024-02-27 12:45 | disposition home or self-care (01) ==
LOC: ED 13:36 → MS2 15:52
PROVIDERS: ADMIT Surgery; ATTEND Surgery
PROC: 0DTJ4ZZ Resection of Appendix, Percutaneous Endoscopic Approach (ICD-10-PCS; principal; 2024-02-25)
DX: K35.891 Other acute appendicitis without perforation, with gangrene (principal); E10.9 Type 1 diabetes mellitus without complications; K52.9 Noninfective gastroenteritis and colitis, unspecified; E03.9 Hypothyroidism, unspecified; G25.81 Restless legs syndrome; E78.00 Pure hypercholesterolemia, unspecified; F32.A Depression, unspecified
CPT/HCPCS: 36415; 44970; 80048; 80053; 81003; 82009; 82803; 83690; 85025; 96365; 96367; 96375; 96376; 99284; 99285; A9270; G0378; J1170; J3490; J7120; J8499; 81001; 87086

== ENCOUNTER 2024-03-14 06:27 | Day surgery (SDC) | payer OTHER ==
[2024-03-14] MEDS: LACTATED RINGERS 1,000 ML IV ONE ×2 (06:31→08:38)
[2024-03-14] MEDS ORDERED: PROPOFOL 500 MG/50 ML 500 MG/50 ML VIAL ONE (07:09)
[2024-03-14] MEDS ORDERED: LIDOCAINE-MPF 2% 5 ML VIAL ONE (07:09)
--- NOTE | 2024-03-14 07:27 | ANESTHESIA ---
Pre-Anesthesia VS, & Labs - Diagnosis PAIN WITH EATING/SCREENING - Procedure EGD /COLONOSCOPY Vital Signs: Temp Pulse Resp BP Pulse Ox O2 Flow Rate 36.1 C L 81 17 112/77 98 03/14/24 06:44 03/14/24 06:44 03/14/24 06:44 03/14/24 06:44 03/14/24 06:44 Height: 5 ft 2 in Weight (kg): 57.1 kg Body Mass Index: 23.0 BMI Classification: Normal - NPO >8 hours - Is Patient ?: Waiver signed - Lab Results Current Lab Results: Laboratory Tests 03/14/24 07:01: POC Whole Bld Glucose 166 H Lab results reviewed: Yes Home Medications and Allergies Home Medications: Ambulatory Orders Lactobacillus Combination No.4 [Probiotic] 1 tab PO DAILY 03/14/24 Insulin Aspart [NovoLOG] 0 units SUBQ DAILY 11/23/17 Atorvastatin [Lipitor] 20 mg PO QPM 02/24/24 Citalopram Hydrobromide [Citalopram HBr] 40 mg PO DAILY 02/24/24 Gabapentin [Neurontin] 300 mg PO HS 02/24/24 Levothyroxine [Synthroid] 25 mcg PO QDAC 02/24/24 Lactobacillus Combination No.4 [Probiotic] 1 tab PO DAILY 03/14/24 Allergies/Adverse Reactions: Allergies Allergy/AdvReac Type Severity Reaction Status Date / Time Sulfa (Sulfonamide AdvReac Intermediate Hives Verified 03/14/24 07:08 Antibiotics) amoxicillin [Amoxicillin] AdvReac Unknown Unknown Verified 03/14/24 07:08 Penicillins AdvReac Unknown Unknown Verified 03/14/24 07:08 hydrocodone AdvReac Itching Verified 03/14/24 07:08 hydromorphone [From Dilaudid] AdvReac Nausea Verified 03/14/24 07:08 oxycodone AdvReac Itching Verified 03/14/24 07:08 Anes History & Medical History - Anesthetic History Anesthesia Complications: reports: Emergence delirium (WITH GA WITH APPY RECENTLY) Family history of Anesthesia Complications: Denies - Medical History Cardiovascular: reports: Other Pulmonary: reports: None Gastrointestinal: reports: Colon polyps Urinary: reports: None Neuro: reports: None Musculoskeletal: reports: None Endocrine/Autoimmune: reports: Type 1 diabetes, HyPOthyroidism Blood Disorders: reports: None Skin: reports: None Smoking Status: Never smoker Psychosocial: reports: No issues indicated, Cannabis - Surgical History General: reports: Appendectomy Orthopedic: reports: Rotator cuff repair, Other Results - EKG Results EKG Comparison: Reviewed EKG Exam General: Alert, Oriented x3 Dental: WNL Mouth Openin Fingerbreadth Neck Mobility: Normal Mallampati classification: II Thyromental Distance: 4-6 cm Respiratory: Lungs clear Cardiovascular: Regular rate Plan Anesthesia Type: Total IV Consent for Procedure(s) Verified and Reviewed: Yes Code Status: Attempt Resuscitation ASA classification: 2-Mild systemic disease Is this case an emergency?: No
[2024-03-14] MEDS ORDERED: PHENYLEPHRINE HCL 0.5 MG/5 ML AMPULE ONE (08:07)
[2024-03-14] MEDS ORDERED: PROPOFOL 200 MG/20 ML VIAL IVP ONE (08:27)
[2024-03-14 08:47] VITALS: O2SAT 100
[2024-03-14 10:09] VITALS: BP 101/76
--- NOTE | 2024-03-14 13:42 | ANESTHESIA POST OP EVALUATION ---
Anesthesia Post Eval - Post Anesthesia Eval Vitals: Last Vital Signs Temp 36.7 C 03/14/24 09:40 Pulse 76 03/14/24 09:40 Resp 16 03/14/24 09:40 BP 101/76 03/14/24 09:40 Pulse Ox 100 03/14/24 09:40 O2 Flow Rate CV Function Including HR & BP: Stable Pain Control: Satisfactory Nausea & Vomiting: Negative Mental Status: Baseline Respiratory Status: Airway Patent Hydration Status: Satisfactory Anesthesia Complications: None
== END 2024-03-14 06:28 | disposition home or self-care (01) ==
LOC: SDS 06:27
PROVIDERS: ATTEND Surgery
PROC: 0DB68ZX Excision of Stomach, Via Natural or Artificial Opening Endoscopic, Diagnostic (ICD-10-PCS; 2024-03-14)
PROC: 0DB28ZX Excision of Middle Esophagus, Via Natural or Artificial Opening Endoscopic, Diagnostic (ICD-10-PCS; 2024-03-14)
PROC: 0DB38ZX Excision of Lower Esophagus, Via Natural or Artificial Opening Endoscopic, Diagnostic (ICD-10-PCS; 2024-03-14)
PROC: 0DBG8ZX Excision of Left Large Intestine, Via Natural or Artificial Opening Endoscopic, Diagnostic (ICD-10-PCS; 2024-03-14)
PROC: 0DBL8ZX Excision of Transverse Colon, Via Natural or Artificial Opening Endoscopic, Diagnostic (ICD-10-PCS; 2024-03-14)
PROC: 0DBF8ZX Excision of Right Large Intestine, Via Natural or Artificial Opening Endoscopic, Diagnostic (ICD-10-PCS; 2024-03-14)
PROC: 0DB98ZX Excision of Duodenum, Via Natural or Artificial Opening Endoscopic, Diagnostic (ICD-10-PCS; principal; 2024-03-14 07:30)
PROC: 0DB78ZX Excision of Stomach, Pylorus, Via Natural or Artificial Opening Endoscopic, Diagnostic (ICD-10-PCS; 2024-03-14 07:30)
DX: R13.10 Dysphagia, unspecified (principal); R19.7 Diarrhea, unspecified; K29.50 Unspecified chronic gastritis without bleeding; K20.90 Esophagitis, unspecified without bleeding; D12.3 Benign neoplasm of transverse colon; E10.9 Type 1 diabetes mellitus without complications; Z79.4 Long term (current) use of insulin
CPT/HCPCS: 43239; 45380; 87045; 87046; 87427; J2372; J7120